=== PATIENT | female | born 1955 | race Caucasian/White ===

== ENCOUNTER 2017-07-21 09:41 | Observation (INO) | payer OTHER ==
[~2017-07-21] VITALS: Ht 167.6 cm; Wt 61.7 kg
[~2017-07-21 09:41] MED LIST: 24 HOUR ALLER15.8 ML; ACET325 PO; ALBU90OI INH; Augmentin 875-1 EACH PO; BENZ2 PO; Benztropine Mesy1 MG PO; CALCA500CH PO; CARV3.125 PO; CETI5 PO; CYCL10 PO; DULO60 PO; ELIQUIS5 MG PO; ERGO400 PO; ERGO50000 PO; GABA300 PO; Hair, Skin & N1 EACH PO; LEVSOD50 PO; LEVSOD75 PO; LISI20 PO; LISI5 PO; LOSA50 PO; MELO7.5 PO; MIRT15 PO; MIRT30 PO; MIRT30ST MM; MIRT30ST PO; Naprosyn500 MG PO; Norco 10-325 T1 EACH PO; Norco 5-325 Ta1 EACH PO; OLAN10 PO; OLAN10A MM; ONDA4 PO; OXYACE5T PO; Omeprazole20 M1 PO; PANT40 PO; PARO20 PO; PENVK500 PO; Percocet 5-3251 EACH PO; Polytrim Eye Dr10 ML BOTHEYES; QUET200 PO; RISE5 PO; RISP.5 PO; TIZANIDINE HCL4 MG PO; TOPI100 PO; TRAM50 PO; VENL75ER PO; ZESTRIL40 MG PO; ZOLP10 PO; Zofran Odt4 MG PO; [UNRECOGNIZED DRUG - CODE]; [UNRECOGNIZED DRUG - CODE]; [UNRECOGNIZED DRUG - CODE] PO
[2017-07-21 10:12] LABS: BASOPHILS ABSOLUTE AUTO 0.07 K/mm3 (0.00-0.23); BASOPHILS PERCENT AUTO 1 % (0-2); EOSINOPHILS ABSOLUTE AUTO 0.22 K/mm3 (0.00-0.68); EOSINOPHILS PERCENT AUTO 2 % (0-6); Hematocrit 41.1 % (33.0-51.0); Hemoglobin 13.5 g/dL (11.5-16.0); IMMATURE GRAN ABSOLUTE AUTO 0.04 K/mm3 (0.00-0.10); IMMATURE GRAN PERCENT AUTO 0 % (0-1); LYMPHOCYTES ABSOLUTE AUTO 3.53 K/mm3 (0.84-5.20); LYMPHOCYTES PERCENT AUTO 30 % (21-46); MONOCYTES ABSOLUTE AUTO 1.05 K/mm3 (0.16-1.47); MONOCYTES PERCENT AUTO 9 % (4-13); Mean Corpuscular HGB 27.3 pg (26.0-34.0); Mean Corpuscular HGB Conc 32.8 g/dL (31.5-36.5); Mean Corpuscular Volume 83 fL (80-100); Mean Platelet Volume 9.4 fL (9.1-12.4); NEUTROPHILS PERCENT AUTO 58 % (41-73); Platelet Count 283 K/mm3 (150-400); RDW Coefficient Variation 14.3 % (11.7-14.2); RDW Standard Deviation 43.2 fL (35.1-46.3); Red Blood Cell Count 4.95 M/mm3 (3.80-5.20); White Blood Cell Count 11.61 K/mm3 (4.00-11.30)
[2017-07-21] MEDS ORDERED: Inderal40 MG (10:27)
[2017-07-21] MEDS ORDERED: MIRT15 PO (10:27)
[2017-07-21] MEDS ORDERED: TRAZ100 PO (10:28)
[2017-07-21] MEDS ORDERED: GABA100 PO (10:28)
[2017-07-21 10:29] LABS: Source, Urine Clean Catch
[2017-07-21 10:33] LABS: Alanine Aminotransfer (ALT/SGP 14 U/L (12-78); Albumin, Blood 3.4 g/dL (3.4-5.0); Albumin/Globulin Ratio 0.8 (0.8-1.8); Alk Phos 55 U/L (50-136); Anion Gap 6 mmol/L (6-16); Aspartate Aminotrans (AST/SGOT 10 U/L (12-37); Bilirubin, Total 0.2 mg/dL (0.1-1.0); Blood Urea Nitrogen 23 mg/dL (8-24); Bun/Creatinine Ratio 32.7 (12.0-20.0); CO2, Blood 28 mmol/L (21-32); Calcium, Blood 8.5 mg/dL (8.5-10.1); Chloride, Blood 101 mmol/L (98-108); Ethanol (Alcohol), Blood, Med <3 mg/dL; Free Thyroxine 0.97 ng/dL (0.70-1.60); Globulin, Blood 4.3 g/dL (2.2-4.0); Glomerular Filtration Rate >60 (60-); Glucose, Blood 86 mg/dL (70-99); Potassium, Blood 4.3 mmol/L (3.5-5.5); Sodium, Blood 135 mmol/L (136-145); Total Protein, Blood 7.7 g/dL (6.4-8.2)
[2017-07-21 10:36] LABS: Thyroid Stimulating Hormone 0.863 uIU/mL (0.360-4.800)
[2017-07-21 10:37] LABS: Acetaminophen, Random <2.0 ug/mL (10.0-30.0)
[2017-07-21 10:41] LABS: Bilirubin, Urine Neg (Neg); Blood, Urine Neg (Neg); Glucose Qualitative, Urine Neg (Neg); Ketones, Urine Neg (Neg); Leukocyte Esterase, Urine 1+ (Neg); Nitrite, Urine Neg (Neg); Protein, Urine Neg (Neg); Specific Gravity, Urine 1.015 (1.003-1.022); Urobilinogen, Urine NORM (Normal)
[2017-07-21 11:00] LABS: U Amphetamine Screen Not Detected; U Barbituate Screen Not Detected; U Benzodiazapine Screen Not Detected; U Buprenorphine Screen Not Detected; U Cannabinoids Screen DETECTED; U Cocaine Screen Not Detected; U Methadone Screen Not Detected; U Methamphetamine Screen Not Detected; U Opiates Screen Not Detected; U Oxycodone Screen Not Detected; U Phencyclidine Screen Not Detected; U Propoxyphene Screen Not Detected
[2017-07-21 11:04] LABS: Appearance, Urine Clear (Clear); Bacteria Not Seen /hpf; Color, Urine Yellow (P-Yellow); Red Blood Cells, Urine Not Seen /hpf (0-2); Squamous Epithelial Cells Few /hpf (Few); White Blood Cells, Urine 0-2 /hpf (0-5)
[2017-07-21] MEDS ORDERED: GABA600 PO (11:44)
[2017-07-21] MEDS ORDERED: DIVA500EC PO (11:44)
[2017-07-21] MEDS ORDERED: DULO60 (11:45)
[2017-07-21] MEDS ORDERED: LEVSOD75 PO (11:45)
[2017-07-21] MEDS ORDERED: OLAN20 MM (11:45)
== END 2017-07-21 18:37 | disposition home or self-care (01) ==
LOC: ER 09:41 → EOR 09:42
PROVIDERS: Emergency Medicine
DX: R45.851 Suicidal ideations (principal); F31.9 Bipolar disorder, unspecified; I10 Essential (primary) hypertension; M54.9 Dorsalgia, unspecified; F17.200 Nicotine dependence, unspecified, uncomplicated; G89.29 Other chronic pain; E07.9 Disorder of thyroid, unspecified; Z90.710 Acquired absence of both cervix and uterus; Z79.899 Other long term (current) drug therapy; Z90.49 Acquired absence of other specified parts of digestive tract; Z88.8 Allergy status to other drugs, medicaments and biological substances
CPT/HCPCS: 80053; 81001; 84439; 84443; 85025; 99285; G0378; G0480

== ENCOUNTER → 2017-10-04 | Outpatient (CLI) | payer OTHER ==
[~2017-10-04] MED LIST changes: +DIVA125EC PO; +DULO60; +GABA100 PO; +GABA600 PO; +Inderal40 MG; +OLAN20 MM; +TRAZ100 PO
[2017-10-04 15:24] LABS: BASOPHILS ABSOLUTE AUTO 0.07 K/mm3 (0.00-0.23); BASOPHILS PERCENT AUTO 1 % (0-2); EOSINOPHILS ABSOLUTE AUTO 0.21 K/mm3 (0.00-0.68); EOSINOPHILS PERCENT AUTO 2 % (0-6); Hematocrit 38.7 % (33.0-51.0); Hemoglobin 13.3 g/dL (11.5-16.0); IMMATURE GRAN ABSOLUTE AUTO 0.03 K/mm3 (0.00-0.10); IMMATURE GRAN PERCENT AUTO 0 % (0-1); LYMPHOCYTES ABSOLUTE AUTO 3.96 K/mm3 (0.84-5.20); LYMPHOCYTES PERCENT AUTO 36 % (21-46); MONOCYTES ABSOLUTE AUTO 1.02 K/mm3 (0.16-1.47); MONOCYTES PERCENT AUTO 9 % (4-13); Mean Corpuscular HGB 28.9 pg (26.0-34.0); Mean Corpuscular HGB Conc 34.4 g/dL (31.5-36.5); Mean Corpuscular Volume 84 fL (80-100); Mean Platelet Volume 9.6 fL (9.1-12.4); NEUTROPHILS ABSOLUTE AUTO 5.63 K/mm3 (1.96-9.15); NEUTROPHILS PERCENT AUTO 52 % (41-73); Platelet Count 330 K/mm3 (150-400); RDW Coefficient Variation 17.3 % (11.7-14.2); RDW Standard Deviation 52.8 fL (35.1-46.3); Red Blood Cell Count 4.61 M/mm3 (3.80-5.20); White Blood Cell Count 10.92 K/mm3 (4.00-11.30)
[2017-10-04 15:45] LABS: Anion Gap 8 mmol/L (6-16); Blood Urea Nitrogen 26 mg/dL (8-24); Bun/Creatinine Ratio 29.2 (12.0-20.0); CO2, Blood 28 mmol/L (21-32); Calcium, Blood 8.9 mg/dL (8.5-10.1); Chloride, Blood 98 mmol/L (98-108); Creatinine, Blood 0.89 mg/dL (0.40-1.00); Glomerular Filtration Rate >60 (60-); Glucose, Blood 107 mg/dL (70-99); Potassium, Blood 4.6 mmol/L (3.5-5.5); Sodium, Blood 134 mmol/L (136-145); Thyroid Stimulating Hormone 1.057 uIU/mL (0.360-4.800); Troponin I <0.017 ng/mL (0.000-0.040)
== END | disposition home or self-care (01) ==
LOC: LAB EV 15:19 → LAB SHORT 15:19
PROVIDERS: Physician Assistant Surgical
DX: R07.9 Chest pain, unspecified (principal); R53.83 Other fatigue
CPT/HCPCS: 80048; 84443; 84484; 85025; 85379

== ENCOUNTER → 2017-10-06 | Outpatient (CLI) | payer OTHER | LOC: LAB EV 15:20 → LAB SHORT 15:20 | DX: R30.0 Dysuria (principal) | CPT/HCPCS: 87086 ==

== ENCOUNTER → 2017-10-19 | Outpatient (CLI) | payer OTHER | LOC: LAB SHORT 12:14 → LAB EV 12:14 | DX: N39.0 Urinary tract infection, site not specified (principal); R07.9 Chest pain, unspecified | CPT/HCPCS: 84484; 85379 ==

== ENCOUNTER → 2017-11-18 | Outpatient (CLI) | payer OTHER ==
[2017-11-18 13:00] LABS: BASOPHILS ABSOLUTE AUTO 0.08 K/mm3 (0.00-0.23); BASOPHILS PERCENT AUTO 1 % (0-2); EOSINOPHILS ABSOLUTE AUTO 0.19 K/mm3 (0.00-0.68); EOSINOPHILS PERCENT AUTO 2 % (0-6); Hematocrit 40.1 % (33.0-51.0); Hemoglobin 13.9 g/dL (11.5-16.0); IMMATURE GRAN ABSOLUTE AUTO 0.02 K/mm3 (0.00-0.10); IMMATURE GRAN PERCENT AUTO 0 % (0-1); LYMPHOCYTES ABSOLUTE AUTO 3.41 K/mm3 (0.84-5.20); LYMPHOCYTES PERCENT AUTO 36 % (21-46); MONOCYTES ABSOLUTE AUTO 0.81 K/mm3 (0.16-1.47); MONOCYTES PERCENT AUTO 9 % (4-13); Mean Corpuscular HGB 29.6 pg (26.0-34.0); Mean Corpuscular HGB Conc 34.7 g/dL (31.5-36.5); Mean Corpuscular Volume 85 fL (80-100); Mean Platelet Volume 9.3 fL (9.1-12.4); NEUTROPHILS ABSOLUTE AUTO 5.03 K/mm3 (1.96-9.15); NEUTROPHILS PERCENT AUTO 53 % (41-73); Platelet Count 305 K/mm3 (150-400); RDW Coefficient Variation 13.8 % (11.7-14.2); RDW Standard Deviation 43.3 fL (35.1-46.3); White Blood Cell Count 9.54 K/mm3 (4.00-11.30)
[2017-11-18 13:12] LABS: Alanine Aminotransfer (ALT/SGP 15 U/L (12-78); Albumin, Blood 3.6 g/dL (3.4-5.0); Albumin/Globulin Ratio 0.8 (0.8-1.8); Alk Phos 56 U/L (40-126); Anion Gap 8 mmol/L (6-16); Aspartate Aminotrans (AST/SGOT 14 U/L (12-37); Bilirubin, Total 0.3 mg/dL (0.1-1.0); Blood Urea Nitrogen 21 mg/dL (8-24); Bun/Creatinine Ratio 26.9 (12.0-20.0); CO2, Blood 28 mmol/L (21-32); Chloride, Blood 97 mmol/L (98-108); Creatinine, Blood 0.78 mg/dL (0.40-1.00); Globulin, Blood 4.3 g/dL (2.2-4.0); Glomerular Filtration Rate >60 (60-); Glucose, Blood 87 mg/dL (70-99); Potassium, Blood 4.9 mmol/L (3.5-5.5); Sodium, Blood 133 mmol/L (136-145); Total Protein, Blood 7.9 g/dL (6.4-8.2)
== END | disposition home or self-care (01) ==
LOC: LAB SHORT 12:57 → LAB EV 12:57
PROVIDERS: General Practice
DX: J02.9 Acute pharyngitis, unspecified (principal); R51 Headache
CPT/HCPCS: 80053; 85025; 85651; 87070

== ENCOUNTER → 2017-11-21 | Outpatient (CLI) | payer OTHER | END | disposition home or self-care (01) | LOC: LAB SHORT 16:51 → LAB EV 16:51 | DX: R35.0 Frequency of micturition (principal) | CPT/HCPCS: 87086 ==

== ENCOUNTER 2018-02-21 09:22 | Inpatient (IN) | payer OTHER ==
[~2018-02-21] VITALS: Ht 167.6 cm; Wt 81.4 kg
[~2018-02-21 09:22] MED LIST changes: -DIVA125EC PO; +DIVA500EC PO
[2018-02-21 10:41] LABS: BASOPHILS ABSOLUTE AUTO 0.08 K/mm3 (0.00-0.23); BASOPHILS PERCENT AUTO 1 % (0-2); EOSINOPHILS ABSOLUTE AUTO 0.19 K/mm3 (0.00-0.68); EOSINOPHILS PERCENT AUTO 2 % (0-6); Hematocrit 37.9 % (33.0-51.0); Hemoglobin 12.7 g/dL (11.5-16.0); IMMATURE GRAN ABSOLUTE AUTO 0.04 K/mm3 (0.00-0.10); IMMATURE GRAN PERCENT AUTO 0 % (0-1); LYMPHOCYTES PERCENT AUTO 25 % (21-46); MONOCYTES ABSOLUTE AUTO 1.18 K/mm3 (0.16-1.47); MONOCYTES PERCENT AUTO 9 % (4-13); Mean Corpuscular HGB Conc 33.5 g/dL (31.5-36.5); Mean Corpuscular Volume 89 fL (80-100); Mean Platelet Volume 9.6 fL (9.1-12.4); NEUTROPHILS ABSOLUTE AUTO 8.36 K/mm3 (1.96-9.15); NEUTROPHILS PERCENT AUTO 64 % (41-73); Platelet Count 281 K/mm3 (150-400); RDW Coefficient Variation 14.4 % (11.7-14.2); RDW Standard Deviation 46.7 fL (35.1-46.3); Red Blood Cell Count 4.24 M/mm3 (3.80-5.20); White Blood Cell Count 13.05 K/mm3 (4.00-11.30)
[2018-02-21 10:53] LABS: Alanine Aminotransfer (ALT/SGP 15 U/L (12-78); Albumin, Blood 3.1 g/dL (3.4-5.0); Albumin/Globulin Ratio 0.7 (0.8-1.8); Alk Phos 56 U/L (50-136); Anion Gap 8 mmol/L (6-16); Aspartate Aminotrans (AST/SGOT 10 U/L (12-37); Bilirubin, Total 0.2 mg/dL (0.1-1.0); Blood Urea Nitrogen 18 mg/dL (8-24); Bun/Creatinine Ratio 28.6 (12.0-20.0); CO2, Blood 26 mmol/L (21-32); Calcium, Blood 8.2 mg/dL (8.5-10.1); Chloride, Blood 99 mmol/L (98-108); Creatinine, Blood 0.63 mg/dL (0.40-1.00); Globulin, Blood 4.4 g/dL (2.2-4.0); Glomerular Filtration Rate >60 (60-); Glucose, Blood 116 mg/dL (70-99); Potassium, Blood 4.4 mmol/L (3.5-5.5); Sodium, Blood 133 mmol/L (136-145); Total Protein, Blood 7.5 g/dL (6.4-8.2)
[2018-02-21] MEDS ORDERED: MELATONIN PO (15:04)
[2018-02-21 15:45] LABS: Source, Urine Clean Catch
[2018-02-21 15:52] LABS: Bilirubin, Urine Neg (Neg); Blood, Urine Neg (Neg); Glucose Qualitative, Urine Neg (Neg); Ketones, Urine Neg (Neg); Leukocyte Esterase, Urine Neg (Neg); Nitrite, Urine Neg (Neg); Protein, Urine Neg (Neg); Urobilinogen, Urine NORM (Normal)
[2018-02-21 16:00] LABS: Appearance, Urine Clear (Clear); Color, Urine Yellow (P-Yellow)
[2018-02-21 16:05] LABS: U Cannabinoids Screen DETECTED; U Opiates Screen DETECTED
[2018-02-21 16:06] LABS: U Amphetamine Screen Not Detected; U Barbituate Screen Not Detected; U Benzodiazapine Screen Not Detected; U Buprenorphine Screen Not Detected; U Cocaine Screen Not Detected; U Methadone Screen Not Detected; U Methamphetamine Screen Not Detected; U Oxycodone Screen Not Detected; U Phencyclidine Screen Not Detected; U Propoxyphene Screen Not Detected
[2018-02-22 05:55] LABS: BASOPHILS ABSOLUTE AUTO 0.04 K/mm3 (0.00-0.23); BASOPHILS PERCENT AUTO 0 % (0-2); EOSINOPHILS ABSOLUTE AUTO 0.12 K/mm3 (0.00-0.68); EOSINOPHILS PERCENT AUTO 1 % (0-6); Hematocrit 30.2 % (33.0-51.0); Hemoglobin 9.9 g/dL (11.5-16.0); IMMATURE GRAN ABSOLUTE AUTO 0.04 K/mm3 (0.00-0.10); IMMATURE GRAN PERCENT AUTO 0 % (0-1); LYMPHOCYTES ABSOLUTE AUTO 2.93 K/mm3 (0.84-5.20); LYMPHOCYTES PERCENT AUTO 29 % (21-46); MONOCYTES ABSOLUTE AUTO 1.49 K/mm3 (0.16-1.47); MONOCYTES PERCENT AUTO 15 % (4-13); Mean Corpuscular HGB Conc 32.8 g/dL (31.5-36.5); Mean Platelet Volume 9.6 fL (9.1-12.4); NEUTROPHILS ABSOLUTE AUTO 5.48 K/mm3 (1.96-9.15); NEUTROPHILS PERCENT AUTO 54 % (41-73); Platelet Count 214 K/mm3 (150-400); RDW Coefficient Variation 14.7 % (11.7-14.2); RDW Standard Deviation 49.2 fL (35.1-46.3)
[2018-02-22 05:57] LABS: Mean Corpuscular Volume 92 fL (80-100)
[2018-02-22 06:18] LABS: Magnesium, Blood 1.8 mg/dL (1.6-2.4)
[2018-02-22 06:20] LABS: Anion Gap 7 mmol/L (6-16); Blood Urea Nitrogen 14 mg/dL (8-24); Bun/Creatinine Ratio 20.7 (12.0-20.0); CO2, Blood 27 mmol/L (21-32); Chloride, Blood 103 mmol/L (98-108); Creatinine, Blood 0.68 mg/dL (0.40-1.00); Glomerular Filtration Rate >60 (60-); Glucose, Blood 97 mg/dL (70-99); Sodium, Blood 137 mmol/L (136-145)
[2018-02-23 05:35] LABS: BASOPHILS ABSOLUTE AUTO 0.04 K/mm3 (0.00-0.23); BASOPHILS PERCENT AUTO 0 % (0-2); EOSINOPHILS ABSOLUTE AUTO 0.11 K/mm3 (0.00-0.68); EOSINOPHILS PERCENT AUTO 1 % (0-6); Hematocrit 24.1 % (33.0-51.0); Hemoglobin 7.7 g/dL (11.5-16.0); IMMATURE GRAN ABSOLUTE AUTO 0.03 K/mm3 (0.00-0.10); IMMATURE GRAN PERCENT AUTO 0 % (0-1); LYMPHOCYTES ABSOLUTE AUTO 2.55 K/mm3 (0.84-5.20); LYMPHOCYTES PERCENT AUTO 26 % (21-46); MONOCYTES ABSOLUTE AUTO 1.53 K/mm3 (0.16-1.47); MONOCYTES PERCENT AUTO 16 % (4-13); Mean Corpuscular HGB 30.1 pg (26.0-34.0); Mean Corpuscular Volume 94 fL (80-100); Mean Platelet Volume 8.9 fL (9.1-12.4); NEUTROPHILS ABSOLUTE AUTO 5.48 K/mm3 (1.96-9.15); NEUTROPHILS PERCENT AUTO 56 % (41-73); Platelet Count 158 K/mm3 (150-400); RDW Coefficient Variation 14.6 % (11.7-14.2); Red Blood Cell Count 2.56 M/mm3 (3.80-5.20); White Blood Cell Count 9.74 K/mm3 (4.00-11.30)
[2018-02-24 06:35] LABS: BASOPHILS ABSOLUTE AUTO 0.03 K/mm3 (0.00-0.23); BASOPHILS PERCENT AUTO 0 % (0-2); EOSINOPHILS PERCENT AUTO 1 % (0-6); Hematocrit 27.2 % (33.0-51.0); Hemoglobin 9.4 g/dL (11.5-16.0); IMMATURE GRAN ABSOLUTE AUTO 0.03 K/mm3 (0.00-0.10); IMMATURE GRAN PERCENT AUTO 0 % (0-1); LYMPHOCYTES ABSOLUTE AUTO 1.94 K/mm3 (0.84-5.20); LYMPHOCYTES PERCENT AUTO 20 % (21-46); MONOCYTES ABSOLUTE AUTO 1.55 K/mm3 (0.16-1.47); MONOCYTES PERCENT AUTO 16 % (4-13); Mean Corpuscular HGB 30.4 pg (26.0-34.0); Mean Corpuscular HGB Conc 34.6 g/dL (31.5-36.5); Mean Platelet Volume 10.1 fL (9.1-12.4); NEUTROPHILS ABSOLUTE AUTO 5.98 K/mm3 (1.96-9.15); NEUTROPHILS PERCENT AUTO 62 % (41-73); Platelet Count 161 K/mm3 (150-400); RDW Coefficient Variation 14.8 % (11.7-14.2); RDW Standard Deviation 47.6 fL (35.1-46.3); Red Blood Cell Count 3.09 M/mm3 (3.80-5.20); White Blood Cell Count 9.63 K/mm3 (4.00-11.30)
[2018-02-24 06:37] LABS: Mean Corpuscular Volume 88 fL (80-100)
[2018-02-24 06:51] LABS: Albumin, Blood 2.2 g/dL (3.4-5.0); Anion Gap 6 mmol/L (6-16); Blood Urea Nitrogen 6 mg/dL (8-24); Bun/Creatinine Ratio 10.7 (12.0-20.0); CO2, Blood 28 mmol/L (21-32); Calcium, Blood 7.7 mg/dL (8.5-10.1); Chloride, Blood 104 mmol/L (98-108); Creatinine, Blood 0.56 mg/dL (0.40-1.00); Glomerular Filtration Rate >60 (60-); Glucose, Blood 90 mg/dL (70-99); Phosphorus, Blood 2.2 mg/dL (2.5-4.9); Potassium, Blood 4.1 mmol/L (3.5-5.5); Sodium, Blood 138 mmol/L (136-145)
[2018-02-25 18:23] LABS: Source, Urine Catheter
[2018-02-25 18:31] LABS: Appearance, Urine Clear (Clear); Bilirubin, Urine Neg (Neg); Blood, Urine Neg (Neg); Color, Urine Yellow (P-Yellow); Glucose Qualitative, Urine Neg (Neg); Ketones, Urine 3+ (Neg); Leukocyte Esterase, Urine 1+ (Neg); Nitrite, Urine Neg (Neg); Protein, Urine 1+ (Neg); Specific Gravity, Urine 1.005 (1.003-1.022); Urobilinogen, Urine 1+ (Normal)
[2018-02-25 18:41] LABS: Bacteria Not Seen /hpf; Red Blood Cells, Urine Not Seen /hpf (0-2); Squamous Epithelial Cells Rare /hpf (Few)
== END 2018-02-26 16:37 | DRG 481 ==
LOC: ER 09:22 → SURS 12:57
PROVIDERS: Emergency Medicine; Family Medicine; Orthopaedic Surgery; Student in an Organized Health Care Education/Training Program
PROC: 0QS704Z Reposition Left Upper Femur with Internal Fixation Device, Open Approach (ICD-10-PCS; principal; 2018-02-22 12:30)
DX: S72.142A Displaced intertrochanteric fracture of left femur, initial encounter for closed fracture (principal); D62 Acute posthemorrhagic anemia; S72.042A Displaced fracture of base of neck of left femur, initial encounter for closed fracture; F31.9 Bipolar disorder, unspecified; E03.9 Hypothyroidism, unspecified; I10 Essential (primary) hypertension; M85.80 Other specified disorders of bone density and structure, unspecified site; F32.9 Major depressive disorder, single episode, unspecified; W19.XXXA Unspecified fall, initial encounter
CPT/HCPCS: 36415; 51702; 71045; 73502; 80048; 80053; 80069; 81001; 81003; 83735; 85025; 86850; 86900; 86901; 86923; 93005; 93010; 94760; 94762; 96361; 96374; 96375; 96376; 97162; 97166; 97530; 97535; 99285-25; C1713; C1769; G0480; G8978; G8979; G8987; G8988; J0690; J1170; J1650; J2250; J2310; J2370; J2405; J2710; J3010; J7030; J7050; J7120; P9016

== ENCOUNTER 2018-09-10 13:51 | Emergency (ER) | payer OTHER ==
[~2018-09-10] VITALS: Ht 167.6 cm; Wt 63.5 kg
[~2018-09-10 13:51] MED LIST changes: +MELATONIN PO
[2018-09-10 16:38] LABS: Source, Urine Catheter
[2018-09-10 16:40] LABS: Bilirubin, Urine Neg (Neg); Blood, Urine Neg (Neg); Glucose Qualitative, Urine Neg (Neg); Ketones, Urine 4+ (Neg); Leukocyte Esterase, Urine 1+ (Neg); Nitrite, Urine Neg (Neg); Protein, Urine 1+ (Neg); Specific Gravity, Urine 1.015 (1.003-1.022); Urobilinogen, Urine 1+ (Normal)
[2018-09-10 16:54] LABS: Appearance, Urine Clear (Clear); Color, Urine Yellow (P-Yellow)
[2018-09-10 16:58] LABS: Bacteria Few /hpf; Red Blood Cells, Urine 0-2 /hpf (0-2); Renal Epithelial Rare /hpf ({null, 0-Rare}); Squamous Epithelial Cells Few /hpf (Few)
== END 2018-09-10 18:23 | disposition home or self-care (01) ==
LOC: ER 13:51
PROVIDERS: Emergency Medicine
DX: M54.5 Low back pain (principal); F31.9 Bipolar disorder, unspecified; I10 Essential (primary) hypertension; E07.9 Disorder of thyroid, unspecified; F17.200 Nicotine dependence, unspecified, uncomplicated; Z88.5 Allergy status to narcotic agent; Z88.8 Allergy status to other drugs, medicaments and biological substances; Z79.899 Other long term (current) drug therapy
CPT/HCPCS: 72100; 81001; 87086; 96372; 99284-25; J1885; P9612

== ENCOUNTER 2018-10-08 02:10 | Emergency (ER) | payer OTHER ==
[~2018-10-08] VITALS: Ht 170.2 cm; Wt 68.0 kg
[2018-10-08 02:49] LABS: Source, Urine Catheter
[2018-10-08 02:56] LABS: Bilirubin, Urine Neg (Neg); Blood, Urine Neg (Neg); Glucose Qualitative, Urine Neg (Neg); Ketones, Urine Neg (Neg); Leukocyte Esterase, Urine 1+ (Neg); Nitrite, Urine Neg (Neg); Protein, Urine Neg (Neg); Urobilinogen, Urine NORM (Normal); pH, Urine 6.5 (5.0-8.0)
[2018-10-08 02:57] LABS: Appearance, Urine Clear (Clear); Color, Urine Yellow (P-Yellow)
[2018-10-08 03:01] LABS: Bacteria Mod /hpf; Red Blood Cells, Urine 0-2 /hpf (0-2); Squamous Epithelial Cells Not Seen /hpf (Few); White Blood Cells, Urine 0-2 /hpf (0-5)
[2018-10-08 03:27] LABS: U Amphetamine Screen Not Detected; U Barbituate Screen Not Detected; U Benzodiazapine Screen Not Detected; U Buprenorphine Screen Not Detected; U Cannabinoids Screen DETECTED; U Cocaine Screen Not Detected; U Methadone Screen Not Detected; U Methamphetamine Screen Not Detected; U Opiates Screen Not Detected; U Oxycodone Screen Not Detected; U Phencyclidine Screen Not Detected; U Propoxyphene Screen Not Detected
[2018-10-08 04:04] LABS: BASOPHILS ABSOLUTE AUTO 0.03 K/mm3 (0.00-0.23); BASOPHILS PERCENT AUTO 0 % (0-2); EOSINOPHILS ABSOLUTE AUTO 0.13 K/mm3 (0.00-0.68); EOSINOPHILS PERCENT AUTO 2 % (0-6); Hematocrit 37.7 % (33.0-51.0); IMMATURE GRAN ABSOLUTE AUTO 0.04 K/mm3 (0.00-0.10); IMMATURE GRAN PERCENT AUTO 1 % (0-1); LYMPHOCYTES ABSOLUTE AUTO 2.42 K/mm3 (0.84-5.20); LYMPHOCYTES PERCENT AUTO 29 % (21-46); MONOCYTES ABSOLUTE AUTO 0.91 K/mm3 (0.16-1.47); MONOCYTES PERCENT AUTO 11 % (4-13); Mean Corpuscular HGB 30.7 pg (26.0-34.0); Mean Corpuscular HGB Conc 34.5 g/dL (31.5-36.5); Mean Corpuscular Volume 89 fL (80-100); NEUTROPHILS ABSOLUTE AUTO 4.74 K/mm3 (1.96-9.15); NEUTROPHILS PERCENT AUTO 57 % (41-73); RDW Coefficient Variation 12.8 % (11.7-14.2); RDW Standard Deviation 41.8 fL (35.1-46.3); Red Blood Cell Count 4.24 M/mm3 (3.80-5.20); White Blood Cell Count 8.27 K/mm3 (4.00-11.30)
[2018-10-08 04:06] LABS: Mean Platelet Volume 10.7 fL (9.1-12.4); Platelet Count 54 K/mm3 (150-400)
[2018-10-08 06:07] LABS: Alanine Aminotransfer (ALT/SGP 11 U/L (12-78); Albumin, Blood 3.1 g/dL (3.4-5.0); Albumin/Globulin Ratio 0.8 (0.8-1.8); Alk Phos 162 U/L (50-136); Anion Gap 9 mmol/L (6-16); Aspartate Aminotrans (AST/SGOT 17 U/L (12-37); Bilirubin, Total 0.4 mg/dL (0.1-1.0); Blood Urea Nitrogen 6 mg/dL (8-24); Bun/Creatinine Ratio 8.6 (12.0-20.0); CO2, Blood 26 mmol/L (21-32); Calcium, Blood 8.7 mg/dL (8.5-10.1); Chloride, Blood 95 mmol/L (98-108); Ethanol (Alcohol), Blood, Med <3 mg/dL; Globulin, Blood 3.8 g/dL (2.2-4.0); Glomerular Filtration Rate >60 (60-); Glucose, Blood 67 mg/dL (70-99); Sodium, Blood 130 mmol/L (136-145); Total Protein, Blood 6.9 g/dL (6.4-8.2); Troponin I <0.015 ng/mL (0.000-0.040)
== END 2018-10-08 06:46 | disposition home or self-care (01) ==
LOC: ER 02:10
PROVIDERS: Emergency Medicine
DX: R41.82 Altered mental status, unspecified (principal); I10 Essential (primary) hypertension; F17.210 Nicotine dependence, cigarettes, uncomplicated
CPT/HCPCS: 36415; 70450; 80053; 81001; 84484; 85025; 87086; 93005; 93010; 96360; 96361; 99285-25; G0480; J7120

== ENCOUNTER 2018-10-13 15:14 | Inpatient (IN) | payer OTHER ==
[~2018-10-13] VITALS: Ht 170.2 cm; Wt 66.9 kg
[~2018-10-13 15:14] MED LIST changes: +MELA3 PO; -MELATONIN PO
[2018-10-13 15:37] LABS: BASOPHILS ABSOLUTE AUTO 0.03 K/mm3 (0.00-0.23); BASOPHILS PERCENT AUTO 0 % (0-2); EOSINOPHILS ABSOLUTE AUTO 0.08 K/mm3 (0.00-0.68); EOSINOPHILS PERCENT AUTO 1 % (0-6); Hematocrit 39.5 % (33.0-51.0); Hemoglobin 13.2 g/dL (11.5-16.0); IMMATURE GRAN ABSOLUTE AUTO 0.02 K/mm3 (0.00-0.10); IMMATURE GRAN PERCENT AUTO 0 % (0-1); LYMPHOCYTES ABSOLUTE AUTO 2.33 K/mm3 (0.84-5.20); LYMPHOCYTES PERCENT AUTO 31 % (21-46); MONOCYTES ABSOLUTE AUTO 0.82 K/mm3 (0.16-1.47); MONOCYTES PERCENT AUTO 11 % (4-13); Mean Corpuscular HGB 30.6 pg (26.0-34.0); Mean Corpuscular HGB Conc 33.4 g/dL (31.5-36.5); Mean Platelet Volume 10.1 fL (9.1-12.4); NEUTROPHILS ABSOLUTE AUTO 4.25 K/mm3 (1.96-9.15); NEUTROPHILS PERCENT AUTO 56 % (41-73); Platelet Count 149 K/mm3 (150-400); RDW Coefficient Variation 13.5 % (11.7-14.2); RDW Standard Deviation 46.1 fL (35.1-46.3); Red Blood Cell Count 4.31 M/mm3 (3.80-5.20); White Blood Cell Count 7.53 K/mm3 (4.00-11.30)
[2018-10-13 15:38] LABS: Mean Corpuscular Volume 92 fL (80-100)
[2018-10-13 16:02] LABS: Alanine Aminotransfer (ALT/SGP 14 U/L (12-78); Albumin, Blood 3.3 g/dL (3.4-5.0); Albumin/Globulin Ratio 0.8 (0.8-1.8); Alk Phos 138 U/L (50-136); Anion Gap 8 mmol/L (6-16); Aspartate Aminotrans (AST/SGOT 24 U/L (12-37); Bilirubin, Total 0.4 mg/dL (0.1-1.0); Blood Urea Nitrogen 8 mg/dL (8-24); Bun/Creatinine Ratio 11.1 (12.0-20.0); CO2, Blood 27 mmol/L (21-32); Calcium, Blood 9.2 mg/dL (8.5-10.1); Chloride, Blood 94 mmol/L (98-108); Creatinine, Blood 0.72 mg/dL (0.40-1.00); Globulin, Blood 4.3 g/dL (2.2-4.0); Glomerular Filtration Rate >60 (60-); Glucose, Blood 92 mg/dL (70-99); Potassium, Blood 3.9 mmol/L (3.5-5.5); Sodium, Blood 129 mmol/L (136-145); Total Protein, Blood 7.6 g/dL (6.4-8.2)
[2018-10-13 16:24] LABS: Source, Urine Catheter
[2018-10-13 16:38] LABS: Appearance, Urine Turbid (Clear); Blood, Urine 5+ (Neg); Color, Urine Yellow (P-Yellow); Glucose Qualitative, Urine Neg (Neg); Ketones, Urine 3+ (Neg); Leukocyte Esterase, Urine 3+ (Neg); Nitrite, Urine Pos (Neg); Protein, Urine 3+ (Neg); Urobilinogen, Urine 1+ (Normal)
[2018-10-13 16:54] LABS: PCO2 Arterial 37.9 mmHg (35-45); PO2 Arterial 70.6 mmHg (80-100); pH Blood Arterial 7.43 (7.35-7.45)
[2018-10-13 17:08] LABS: Bilirubin, Urine 1+ (Neg)
[2018-10-13 17:12] LABS: Bacteria Many /hpf; Squamous Epithelial Cells Few /hpf (Few); White Blood Cells, Urine TNTC /hpf (0-5)
[2018-10-13 18:03] LABS: U Amphetamine Screen Not Detected; U Barbituate Screen Not Detected; U Benzodiazapine Screen Not Detected; U Buprenorphine Screen Not Detected; U Cannabinoids Screen DETECTED; U Cocaine Screen Not Detected; U Methadone Screen Not Detected; U Methamphetamine Screen Not Detected; U Opiates Screen Not Detected; U Oxycodone Screen Not Detected; U Phencyclidine Screen Not Detected; U Propoxyphene Screen Not Detected
--- NOTE | 2018-10-13 22:13 | NUR ---
[birth year]29 63 y/o female admitted to room 349 via stretcher from ER. Pt slightly confused, alert person only, able to follow very simple verbal commands in low monotone voice. pts bilateral hand gripps and foot push and pulls weak and equal.
--- NOTE | 2018-10-14 04:12 | NUR ---
SHIFT SUMMARY: 63 Y/O FEMALE RESTED COMFORTABLY ALL EVENING. PTS IV INFUSING WITHOUT ISSUES. PT ALERT TO PERSON ONLY, UNABLE TO FEED OR DRINK FLUIDS UNLESS ASSISTED BY STAFF (POOR HAND AND EYE COORDINATION NOTED). PT APPEARS TO HAVE NO PAIN OR NAUSEA. PT INCONTINENT AND WAS CLEANSED UP BY STAFF WITH ATTENDS DIAPERS APPLIED. PTS BED ALARM APPLIED, BED LOW POSITION, CALL LIGHT AT SIDE.
[2018-10-14 05:39] LABS: Anion Gap 6 mmol/L (6-16); Blood Urea Nitrogen 6 mg/dL (8-24); CO2, Blood 27 mmol/L (21-32); Calcium, Blood 7.8 mg/dL (8.5-10.1); Chloride, Blood 105 mmol/L (98-108); Glomerular Filtration Rate >60 (60-); Glucose, Blood 86 mg/dL (70-99); Potassium, Blood 3.3 mmol/L (3.5-5.5); Sodium, Blood 138 mmol/L (136-145)
--- NOTE | 2018-10-14 16:58 | NUR ---
PT HAS INTERMITTED PERIODS OF ORIENTATION AND ALERTNESS. PT REQUESTED TO GET UP TO CHAIR, BUT CHANGED HER MIND. PT IS INCONTINENT OF URINE, AND BECOMES RESTLESS WHEN SHE IS WET. PT DOES NOT USE CALL LIGHT, ANTICIPATE PT NEEDS. PT HAS SOME TREMULOUS-LIKE MOVEMENT, AND STARTLES EASILY. PT DENIES PAIN, NAUSEA, AND SOB. PT REPORTED NOT FEEL WELL, BUT COULD NOT DESCRIBE SYMPOTMS. ASSISTED WITH BED BATH, PT TOLERATED WELL AND REPORTED FEELING BETTER AFTERWARDS.
--- NOTE | 2018-10-15 04:22 | NUR ---
SHIFT SUMMARY: 63 Y/O FEMALE RESTED COMFORTABLY ALL EVENING. PT IS ALERT AND ORIENTED X 2 AND MUMBLES TO SELF AND MOVES BACK AND FORTH IN BED FREQUENTLY. PT HAS DISORGANIZED THOUGHT PROCESS AND ABLE TO FOLLOW VERY SIMPLE VOICE COMMANDS ONLY. PT REQUIRES ASSISTANCE WITH ALL ADLS TO INCLUDE FEEDING SELF, HOLDING CUP TO DRINK WATER BY STAFF. PT TOOK ALL MEDS AT ONCE WHEN ASSISTED BY THIS NURSE WITH GOOD GAG REFLEX NOTED. PT DENIES PAIN OR NAUSEA. PT IS INCONTINENT URINE AND WAS CHANGED BY STAFF THROUGHOUT SHIFT. PTS BED ALARM APPLIED, BED LOW POSITION, CALL LIGHT AT SIDE.
[2018-10-15 05:55] LABS: Anion Gap 7 mmol/L (6-16); Blood Urea Nitrogen 3 mg/dL (8-24); Bun/Creatinine Ratio 5.5 (12.0-20.0); CO2, Blood 29 mmol/L (21-32); Calcium, Blood 8.8 mg/dL (8.5-10.1); Chloride, Blood 104 mmol/L (98-108); Creatinine, Blood 0.55 mg/dL (0.40-1.00); Glomerular Filtration Rate >60 (60-); Glucose, Blood 72 mg/dL (70-99); Potassium, Blood 4.2 mmol/L (3.5-5.5); Sodium, Blood 140 mmol/L (136-145)
[2018-10-15 10:41] LABS: Valproic Acid 108.9 ug/mL (50.0-100.0)
--- NOTE | 2018-10-15 16:20 | NUR ---
PT IS ALERT DROWSY, ANSWERS SOME QUESTIONS APPROPRIATLY, PT IS SLOW TO RESPOND, SLEPT T/O THE DAY, THE PT WAS UP IN THE CHAIR FOR A SHORT TIME THIS AM, THE PT THIS AM REPORTED SOME PAIN IN RIGHT HIP AREA, HOWEVER WAS NOT MEDICATED FOR PAIN DUE TO EXCESSIVE DROWSINESS, THE PT APPEARS TO BE BREATHING EASILY ON RA AT THIS TIME, CALL LIGHT IN REACH, THE PT TALKED WITH HER SO OVER THE PHONE TODAY, BED ALARM ON, BED IN THE LOW POSITION
--- NOTE | 2018-10-16 06:25 | NUR ---
SUMMARY: A/O TO SELF/PLACE AND ANSWERS SOME Q'S APPROPRIATELY BUT IS SLOW TO RESPOND AND SLEPT MAJORITY OF NOCTE. SHE TOOK PILLS W/O DIFFICULTY AND DENIED PAIN/NEEDS. ATTENDS WERE CHANGED PRN FOR INCONTINENCE, PT WAS UNAWARE OF NEEDING TO VOID BUT KNEW WHEN WET. SHE HAS SHAKEY EXT'S AND MOVES FREQUENTLY IN BED, FEEDER ASSIST REQUIRED. NO ACUTE CHANGES, VSS/AFEBRILE. WILL MONITOR AND REPORT TO DAY RN. POLST NEEDS ADDRESSED TO UPDATE DESIRED CODE STATUS, WILL ENSURE DAY STAFF ARE AWARE.
--- NOTE | 2018-10-16 18:20 | NUR ---
PT A/O X3 PLEASANT AND COOPERATIVE, THE PT THIS AM REPORTED THAT SHE FELT BETTER THIS AM, THE PT IS MORE ALERT AND TALKATIVE COMPARED TO YESTERDAY, THE PT WAS UP INTO THE CHAIR X2 TODAY, THE PT APPEARS TO BE BREATHING EASILY ON RA, THE PT IS PAIIIL IN COLOR, THE PT DOES HAVE RIGHT HIP PAIN WITH ACTIVITY, THE PT SLEPT OFF AND ON T/O THE DAY, CALL LIGHT IN REACH, BED ALARM ON, BED IN THE LOW POSITION
[2018-10-17 05:40] LABS: Hematocrit 31.3 % (33.0-51.0); Hemoglobin 10.4 g/dL (11.5-16.0); Mean Corpuscular HGB 30.1 pg (26.0-34.0); Mean Corpuscular HGB Conc 33.2 g/dL (31.5-36.5); Mean Corpuscular Volume 91 fL (80-100); Mean Platelet Volume 9.5 fL (9.1-12.4); Platelet Count 122 K/mm3 (150-400); RDW Coefficient Variation 13.8 % (11.7-14.2); RDW Standard Deviation 45.9 fL (35.1-46.3); Red Blood Cell Count 3.46 M/mm3 (3.80-5.20); White Blood Cell Count 6.41 K/mm3 (4.00-11.30)
[2018-10-17 05:55] LABS: Albumin, Blood 2.6 g/dL (3.4-5.0); Anion Gap 6 mmol/L (6-16); Blood Urea Nitrogen 7 mg/dL (8-24); CO2, Blood 30 mmol/L (21-32); Calcium, Blood 8.8 mg/dL (8.5-10.1); Chloride, Blood 99 mmol/L (98-108); Creatinine, Blood 0.58 mg/dL (0.40-1.00); Glomerular Filtration Rate >60 (60-); Glucose, Blood 77 mg/dL (70-99); Phosphorus, Blood 3.9 mg/dL (2.5-4.9); Potassium, Blood 3.6 mmol/L (3.5-5.5); Sodium, Blood 135 mmol/L (136-145)
--- NOTE | 2018-10-17 06:10 | NUR ---
SUMMARY: A/OX3, SPECIFIES NEEDS AND COOPERATIVE W/CARE. SHE INITIALLY REPORTED FEELING "LOW" AT START OF SHIFT BUT SUPPORT PROVIDED AND TV TURNED ON FOR DISTRACTION AND PT'S SPIRITS IMPROVED. SHE IS INCREASINGLY MORE SENSICAL AND MUCH MORE INTERACTIVE THIS SHIFT. BASELINE TREMOR PERSISTS SO FOOD/DRINK SET UP IS REQUIRED. PT TOLERATES PILLS WHOLE W/O DIFFICULTY. ATTENDS CHANGED PRN FOR INCONTINENCE. SHE SLEPT MAJORITY OF SHIFT. VSS/AFEBRILE, NO ACUTE CHANGES. WILL MONITOR AND REPORT TO DAY RN.
[2018-10-17] MEDS ORDERED: CEFU500T30 PO (12:37)
--- NOTE | 2018-10-17 16:39 | NUR ---
PT DISCHARGED INSTRUCTIONS WERE GIVEN TO THE PT, THE PTS SO WAS NOTIFIED OF THE DISCHARGE, QUESTIONS WERE ANSWERED, THE PT WAS A/OX2, THE PT APPEARED TO BE BREATHING EASILY ON RA, PRESCRIPTIONS WERE FAXED TO [facility]. DRUG REQUESTED, THE PT WAS TRANSFERED VIA WHEELCHAIR
== END 2018-10-17 15:45 | disposition home health service (06) | DRG 689 ==
LOC: ER 15:14 → MEDS 15:15 → ENPENDDIS 10-17 12:49 → MEDS 10-17 15:45
PROVIDERS: Emergency Medicine; Internal Medicine; Nurse Practitioner Psychiatric/Mental Health; ADMIT Internal Medicine
DX: N30.00 Acute cystitis without hematuria (principal); G92 Toxic encephalopathy; E87.1 Hypo-osmolality and hyponatremia; T43.95XA Adverse effect of unspecified psychotropic drug, initial encounter; B96.1 Klebsiella pneumoniae [K. pneumoniae] as the cause of diseases classified elsewhere; E03.9 Hypothyroidism, unspecified; R53.1 Weakness; I10 Essential (primary) hypertension; F31.9 Bipolar disorder, unspecified; F17.210 Nicotine dependence, cigarettes, uncomplicated; G89.29 Other chronic pain; R82.5 Elevated urine levels of drugs, medicaments and biological substances; M54.9 Dorsalgia, unspecified; Z88.8 Allergy status to other drugs, medicaments and biological substances; Z79.899 Other long term (current) drug therapy
CPT/HCPCS: 36415; 36600; 80048; 80053; 80069; 80164; 81001; 82140; 82803; 85025; 85027; 87077; 87086; 87186; 96360; 96361; 96365; 96366; 96367; 96372; 97162; 97166; 97530; 97535; 99285-25; G0378; J0696; J1650; J3480; J7030; P9612

== ENCOUNTER → 2018-10-25 | Outpatient (CLI) | payer OTHER ==
[~2018-10-25] MED LIST changes: +CEFU500T30 PO
== END | disposition home or self-care (01) ==
LOC: LAB UCHC 16:00 → LAB SHORT 16:00 → EDSTATUS 10-24 13:45 → LAB FUT 10-24 13:45
DX: N39.0 Urinary tract infection, site not specified (principal)
CPT/HCPCS: 87077; 87086; 87186

== ENCOUNTER → 2018-12-06 | Outpatient (CLI) | payer OTHER ==
[~2018-12-06] MED LIST changes: +CEPH500 PO; +DIVA250ER PO; -DULO60; -Inderal40 MG; +Inderal40 MG PO; +Neurontin 100100 MG PO; -OLAN20 MM; +OLAN20 PO; +OLAN5 PO; +Protonix40 MG PO
[2018-12-06 13:38] LABS: Source, Urine Clean Catch
[2018-12-06 13:52] LABS: Bilirubin, Urine Neg (Neg); Blood, Urine 2+ (Neg); Glucose Qualitative, Urine Neg (Neg); Ketones, Urine Neg (Neg); Leukocyte Esterase, Urine Neg (Neg); Nitrite, Urine Neg (Neg); Protein, Urine Neg (Neg); Urobilinogen, Urine NORM (Normal)
[2018-12-06 14:04] LABS: Appearance, Urine Clear (Clear); Color, Urine Yellow (P-Yellow)
[2018-12-06 14:05] LABS: Bacteria Many /hpf; Squamous Epithelial Cells Few /hpf (Few); White Blood Cells, Urine 0-2 /hpf (0-5)
== END | disposition home or self-care (01) ==
LOC: LAB SHORT 13:35 → LAB 13:35
PROVIDERS: Internal Medicine
DX: N39.0 Urinary tract infection, site not specified (principal)
CPT/HCPCS: 81001; 87086

== ENCOUNTER → 2019-01-17 | Outpatient (CLI) | payer OTHER ==
[2019-01-17 13:56] LABS: Source, Urine Clean Catch
[2019-01-17 18:12] LABS: Appearance, Urine Clear (Clear); Bilirubin, Urine Neg (Neg); Blood, Urine Neg (Neg); Color, Urine Yellow (P-Yellow); Glucose Qualitative, Urine Neg (Neg); Ketones, Urine 1+ (Neg); Leukocyte Esterase, Urine 1+ (Neg); Nitrite, Urine Neg (Neg); Protein, Urine Neg (Neg); Urobilinogen, Urine NORM (Normal)
[2019-01-17 18:30] LABS: Bacteria Many /hpf; Red Blood Cells, Urine 0-2 /hpf (0-2); Squamous Epithelial Cells Mod /hpf (Few)
== END ==
LOC: LAB 13:55 → LAB SHORT 13:55 → LAB FUT 12-29 08:50
PROVIDERS: Internal Medicine
DX: N39.0 Urinary tract infection, site not specified (principal)
CPT/HCPCS: 81001; 87086

== ENCOUNTER 2019-01-25 17:35 | Emergency (ER) | payer OTHER ==
[~2019-01-25] VITALS: Ht 167.6 cm; Wt 70.3 kg
[~2019-01-25 17:35] MED LIST changes: -CEPH500 PO; -DIVA250ER PO; -Neurontin 100100 MG PO; -OLAN5 PO; -Protonix40 MG PO
[2019-01-25 18:53] LABS: BASOPHILS ABSOLUTE AUTO 0.04 K/mm3 (0.00-0.23); BASOPHILS PERCENT AUTO 1 % (0-2); EOSINOPHILS ABSOLUTE AUTO 0.07 K/mm3 (0.00-0.68); EOSINOPHILS PERCENT AUTO 1 % (0-6); Hematocrit 34.6 % (33.0-51.0); Hemoglobin 11.7 g/dL (11.5-16.0); IMMATURE GRAN ABSOLUTE AUTO 0.02 K/mm3 (0.00-0.10); IMMATURE GRAN PERCENT AUTO 0 % (0-1); LYMPHOCYTES ABSOLUTE AUTO 2.96 K/mm3 (0.84-5.20); LYMPHOCYTES PERCENT AUTO 38 % (21-46); MONOCYTES ABSOLUTE AUTO 0.76 K/mm3 (0.16-1.47); MONOCYTES PERCENT AUTO 10 % (4-13); Mean Corpuscular HGB 30.4 pg (26.0-34.0); Mean Corpuscular HGB Conc 33.8 g/dL (31.5-36.5); Mean Corpuscular Volume 90 fL (80-100); Mean Platelet Volume 9.8 fL (9.1-12.4); NEUTROPHILS ABSOLUTE AUTO 3.93 K/mm3 (1.96-9.15); NEUTROPHILS PERCENT AUTO 51 % (41-73); Platelet Count 158 K/mm3 (150-400); RDW Coefficient Variation 12.6 % (11.7-14.2); RDW Standard Deviation 42.2 fL (35.1-46.3); Red Blood Cell Count 3.85 M/mm3 (3.80-5.20); White Blood Cell Count 7.78 K/mm3 (4.00-11.30)
[2019-01-25 19:11] LABS: Alanine Aminotransfer (ALT/SGP 10 U/L (12-78); Albumin, Blood 3.1 g/dL (3.4-5.0); Albumin/Globulin Ratio 0.8 (0.8-1.8); Alk Phos 66 U/L (50-136); Anion Gap 5 mmol/L (6-16); Aspartate Aminotrans (AST/SGOT 5 U/L (12-37); Bilirubin, Total 0.3 mg/dL (0.1-1.0); Blood Urea Nitrogen 9 mg/dL (8-24); Bun/Creatinine Ratio 15.1 (12.0-20.0); CO2, Blood 28 mmol/L (21-32); Calcium, Blood 8.4 mg/dL (8.5-10.1); Chloride, Blood 96 mmol/L (98-108); Globulin, Blood 3.7 g/dL (2.2-4.0); Glomerular Filtration Rate >60 (60-); Glucose, Blood 101 mg/dL (70-99); Potassium, Blood 3.5 mmol/L (3.5-5.5); Sodium, Blood 129 mmol/L (136-145); Total Protein, Blood 6.8 g/dL (6.4-8.2)
[2019-01-25 19:55] LABS: Source, Urine Clean Catch
[2019-01-25 19:59] LABS: Bilirubin, Urine Neg (Neg); Blood, Urine Neg (Neg); Glucose Qualitative, Urine Neg (Neg); Ketones, Urine 2+ (Neg); Leukocyte Esterase, Urine 1+ (Neg); Nitrite, Urine Neg (Neg); Protein, Urine Neg (Neg); Specific Gravity, Urine 1.015 (1.003-1.022); Urobilinogen, Urine NORM (Normal)
[2019-01-25 20:11] LABS: Appearance, Urine Clear (Clear); Color, Urine Yellow (P-Yellow)
[2019-01-25 20:18] LABS: Red Blood Cells, Urine Not Seen /hpf (0-2); Squamous Epithelial Cells Many /hpf (Few); White Blood Cells, Urine 0-2 /hpf (0-5)
[2019-01-25 20:19] LABS: Bacteria Many /hpf; Mucus Light (0-Heavy)
== END 2019-01-25 23:00 | disposition home or self-care (01) ==
LOC: ER 17:35
PROVIDERS: Emergency Medicine
DX: E87.1 Hypo-osmolality and hyponatremia (principal); R10.2 Pelvic and perineal pain; G89.29 Other chronic pain; Z88.8 Allergy status to other drugs, medicaments and biological substances; Z79.899 Other long term (current) drug therapy; F31.9 Bipolar disorder, unspecified; I10 Essential (primary) hypertension
CPT/HCPCS: 80053; 81001; 84484; 85025; 87077; 87086; 87186; 93005; 93010; 96360; 99284-25; J7030

== ENCOUNTER → 2019-02-08 | Outpatient (CLI) | payer OTHER ==
[~2019-02-08] MED LIST changes: +CEPH500 PO; +DIVA250ER PO; +Neurontin 100100 MG PO; +OLAN5 PO; +Protonix40 MG PO
[2019-02-08 17:20] LABS: Bilirubin, Urine Neg (Neg); Blood, Urine Neg (Neg); Glucose Qualitative, Urine Neg (Neg); Ketones, Urine 2+ (Neg); Leukocyte Esterase, Urine 1+ (Neg); Nitrite, Urine Neg (Neg); Protein, Urine Neg (Neg); Specific Gravity, Urine 1.015 (1.003-1.022); Urobilinogen, Urine NORM (Normal)
[2019-02-08 17:32] LABS: Appearance, Urine Clear (Clear); Color, Urine Yellow (P-Yellow)
[2019-02-08 17:33] LABS: Bacteria Mod /hpf; Red Blood Cells, Urine Not Seen /hpf (0-2); Squamous Epithelial Cells Mod /hpf (Few); White Blood Cells, Urine 0-2 /hpf (0-5)
== END | disposition home or self-care (01) ==
LOC: LAB 14:00 → LAB SHORT 14:00
PROVIDERS: Internal Medicine
DX: N39.0 Urinary tract infection, site not specified (principal)
CPT/HCPCS: 81001; 87086; 87147

== ENCOUNTER 2019-02-12 12:25 | Inpatient (IN) | payer OTHER ==
[~2019-02-12] VITALS: Ht 167.6 cm; Wt 70.0 kg
[~2019-02-12 12:25] MED LIST changes: -CEPH500 PO; -DIVA250ER PO; -Neurontin 100100 MG PO; -OLAN5 PO; -Protonix40 MG PO
[2019-02-12 13:28] LABS: BASOPHILS ABSOLUTE AUTO 0.03 K/mm3 (0.00-0.23); BASOPHILS PERCENT AUTO 1 % (0-2); EOSINOPHILS ABSOLUTE AUTO 0.11 K/mm3 (0.00-0.68); EOSINOPHILS PERCENT AUTO 2 % (0-6); Hematocrit 37.9 % (33.0-51.0); Hemoglobin 12.8 g/dL (11.5-16.0); IMMATURE GRAN ABSOLUTE AUTO 0.02 K/mm3 (0.00-0.10); IMMATURE GRAN PERCENT AUTO 0 % (0-1); LYMPHOCYTES ABSOLUTE AUTO 2.61 K/mm3 (0.84-5.20); LYMPHOCYTES PERCENT AUTO 44 % (21-46); MONOCYTES ABSOLUTE AUTO 0.56 K/mm3 (0.16-1.47); MONOCYTES PERCENT AUTO 9 % (4-13); Mean Corpuscular HGB 30.1 pg (26.0-34.0); Mean Corpuscular HGB Conc 33.8 g/dL (31.5-36.5); Mean Corpuscular Volume 89 fL (80-100); NEUTROPHILS ABSOLUTE AUTO 2.67 K/mm3 (1.96-9.15); NEUTROPHILS PERCENT AUTO 45 % (41-73); Platelet Count 188 K/mm3 (150-400); RDW Coefficient Variation 12.7 % (11.7-14.2); RDW Standard Deviation 41.6 fL (35.1-46.3); Red Blood Cell Count 4.25 M/mm3 (3.80-5.20)
[2019-02-12 13:53] LABS: Alanine Aminotransfer (ALT/SGP 15 U/L (12-78); Albumin, Blood 3.3 g/dL (3.4-5.0); Albumin/Globulin Ratio 0.8 (0.8-1.8); Alk Phos 87 U/L (50-136); Anion Gap 7 mmol/L (6-16); Aspartate Aminotrans (AST/SGOT 13 U/L (12-37); Bilirubin, Total 0.4 mg/dL (0.1-1.0); Blood Urea Nitrogen 7 mg/dL (8-24); Bun/Creatinine Ratio 8.6 (12.0-20.0); CO2, Blood 29 mmol/L (21-32); Calcium, Blood 8.9 mg/dL (8.5-10.1); Chloride, Blood 92 mmol/L (98-108); Creatinine, Blood 0.82 mg/dL (0.40-1.00); Glomerular Filtration Rate >60 (60-); Glucose, Blood 87 mg/dL (70-99); Potassium, Blood 4.6 mmol/L (3.5-5.5); Sodium, Blood 128 mmol/L (136-145); Total Protein, Blood 7.3 g/dL (6.4-8.2)
[2019-02-12 19:14] LABS: Source, Urine Clean Catch
[2019-02-12 19:44] LABS: Bilirubin, Urine Neg (Neg); Blood, Urine Neg (Neg); Glucose Qualitative, Urine Neg (Neg); Ketones, Urine 1+ (Neg); Leukocyte Esterase, Urine 1+ (Neg); Nitrite, Urine Neg (Neg); Protein, Urine Neg (Neg); Specific Gravity, Urine 1.005 (1.003-1.022); Urobilinogen, Urine NORM (Normal)
[2019-02-12 20:03] LABS: Appearance, Urine Clear (Clear); Color, Urine Yellow (P-Yellow)
[2019-02-12 20:04] LABS: White Blood Cells, Urine 0-2 /hpf (0-5)
[2019-02-12 20:05] LABS: Bacteria Rare /hpf; Red Blood Cells, Urine 0-2 /hpf (0-2); Squamous Epithelial Cells Few /hpf (Few)
[2019-02-12] MEDS ORDERED: Benztropine Mesy1 MG PO (21:16)
[2019-02-12] MEDS ORDERED: Protonix40 MG PO (21:16)
[2019-02-12] MEDS ORDERED: GABA300 PO (21:18)
[2019-02-12] MEDS ORDERED: Neurontin 100100 MG PO (21:18)
--- NOTE | 2019-02-12 23:35 | NUR ---
6825 ADMIT: PT ARRIVES TO ROOM 217 VIA GOURNEY AND IS SLIDE SHEET TRANSFERRED TO BED; PT TOLERATES WELL AND MOVES WELL IN BED. PT APPEARS ALERT AND ANSWERS QUESTIONS TO BEST OF ABILITY BUT ADMITS TO BEING A POOR HISTORIAN. PT STATES PAIN WELL CONTROLLED @ THIS TIME. PT ORIENTED TO CALL SYSTEM AND CALL LIGHT PLACED IN REACH.
--- NOTE | 2019-02-13 23:29 | NUR ---
output: pt has no urine output t/o today except for 1 incontinent void at 0915 this am. pt attempted x2 on bedpan but wad unable to go. bladder scan for 390. straight cath returned 500cc ambure urine.
[2019-02-14 04:54] LABS: Anion Gap 6 mmol/L (6-16); Blood Urea Nitrogen 9 mg/dL (8-24); Bun/Creatinine Ratio 12.1 (12.0-20.0); CO2, Blood 28 mmol/L (21-32); Calcium, Blood 8.6 mg/dL (8.5-10.1); Chloride, Blood 100 mmol/L (98-108); Creatinine, Blood 0.74 mg/dL (0.40-1.00); Glomerular Filtration Rate >60 (60-); Glucose, Blood 77 mg/dL (70-99); Potassium, Blood 3.8 mmol/L (3.5-5.5); Sodium, Blood 134 mmol/L (136-145)
--- NOTE | 2019-02-14 06:22 | NUR ---
PT HAS BEEN STABLE THIS SHIFT. HYPERTENSIVE AT TIMES. PT DROWSY AND SLEEPING MOST OF SHIFT. WAKES UP EASILY THIS AM BUT IS CONFUSED AT TIMES. BED ALARM IN USE. PT HAS SIGNIFICANT TREMORS. PT VERY UNSTEADY ON FEET, 2 PERSON ASSIST AND DOES NOT FOLLOW VERBAL CUES WELL. STRAIGHT CATH X1 AND PT VOIDED ON BEDPAN. ATTENDS IN PLACE FOR INCONTINENCE HX. PT HAS NO COMPLAINTS OF PAIN. HELD HS MEDS FOR DROWSINESS. THERAPY RECOMMENDS HOME HEALTH AT DISCHARGE.
--- NOTE | 2019-02-14 07:36 | NUR ---
ASSESSMENT PT SLEEPING WHEN RN ENTERED ROOM, WAKE EASILY. PT STATES 2010 WHEN ASKED WHAT YEAR IT IS, STATES 2019 WHEN ASKED WHO PRESIDENT IS. IS ABLE TO VERBALIZE WHERE SHE IS/WHY SHE IS HERE APPROPRIATLY. PT DENIES PAIN AT THIS TIME.
[2019-02-14 09:59] LABS: Valproic Acid 53.7 ug/mL (50.0-100.0)
--- NOTE | 2019-02-14 17:26 | NUR ---
SHIFT SUMMARY PT HAS REMAINED A/0 X'S 2 THROUGHOUT SHIFT. UP TO CHAIR 2 PERSON ASSIST. VOIDING. PT HAS NOT HAD ANY COMPLAINTS OF PAIN THIS SHIFT, ROXICODONE HELD. PLAN TO DC HOME WITH HH TOMORROW IF NO WORSENING SYMPTOMS.
--- NOTE | 2019-02-15 07:26 | NUR ---
PT HAS BEEN DROWSY AND SLEPT THIS SHIFT. WILL WAKE TO VERBAL STIMULI, ORIENTED TO SELF AND PLACE. BED ALARM ON FOR SAFETY PT IS CONFUSED. PT WEAK, 2 PERSON ASSIST TO TURN. INCONTINENT, ATTENDS IN PLACE. PT HAS FOUL SMELLING CLOUDY URINE. PLAN FOR PT TO GO TO HOME HEALTH PER THERAPY RECOMMENDATIONS. PT DOES NOT USE CALL LIGHT APPROPRIATELY
--- NOTE | 2019-02-15 12:07 | NUR ---
RECEIVED PHONE CALL FROM PATIENTS BOYFRIEND, OLIVER. OLIVER TELLS ME PRIOR TO ADMIT PATIENT WAS SCHEDULED BY HER PCP FOR A SCAN OF HER KIDNEYS DUE TO RECURRENT UTI'S. OLIVER IS REQUESTING KIDNEY SCAN BE COMPLETED DURING THIS HOSPITALIZATION. SPOKE WITH DR NAM REGARDING OLIVER'S REQUEST FOR KIDNEY SCAN
--- NOTE | 2019-02-15 12:13 | NUR ---
0930 PATIENT AWAKE, SITTING IN CHAIR. 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 PATIENT ASKING ABOUT BOYFRIEND OLIVER. PATIENT GIVEN BITE OF PUDDING AND SIPS OF WATER AND TOLERATES WITHOUT COUGHING. PATIENT MEDS GIVEN AND PATIENT POCKETS INTO HER CHEEK. AFTER NUMEROUS SIPS OF WATER AND BITES OF PUDDING PATIENT IS ABLE TO SWALLOW MEDS. PATIENT FALLING ASLEEP WHILE IN CHAIR- TWO PERSON ASSIST WITH GAIT BELT BACK TO CHAIR,
--- NOTE | 2019-02-15 17:53 | NUR ---
PATIENT DROWSY MUCH OF SHIFT AND AT TIMES RESTLESS AND FLAILING ARMS AND LEGS WHILE LYING IN BED. PATIENT AWAKENS FOR SHORT PERIODS OF TIME DURING PATIENT CARE AND IS ORIENTED TO PERSON, PLACE. PATIENT DENIES PAIN. ASSISTED PATIENT WITH PO FLUIDS BUT DOES NOT STAY AWAKE FOR LONG ENOUGH PERIODS TO SAFELY TAKE SOLID FOODS
--- NOTE | 2019-02-16 13:23 | NUR ---
PT UP TO CHAIR WITH THERAPY.
--- NOTE | 2019-02-16 13:25 | NUR ---
PT IN AND OUT OF SLEEP EARLY IN THE MORNING, SLOW TO RESPOND. PT GOT PATIENT UP TO THE CHAIR. PATIENT HAS BEEN MORE ALERT AND TALKATIVE SINCE GETTING UP TO CHAIR.
--- NOTE | 2019-02-16 14:48 | NUR ---
CALLED DR. NAM R/T PATIENTS BEHAVIORS AND MENTAL STATUS. NO NEW ORDERS AT THIS TIME. WILL CONTINUE TO MONITOR. PATIENT IS CURRENTLY LAYING IN BED. PATIENTS PUPILS WERE MORE DILATED COMPARED TO THIS AM, PATIENT WAS SPEAKING NONSENSICALLY AND NOT MAKING SENSE. BED ALARM ON.
--- NOTE | 2019-02-16 15:45 | NUR ---
ROUNDED ON PT. PUPILS REMAIN DIALATED. PT WAS ABLE TO MAINTAIN A SHORT CONVERSATION AND ANSWER QUESTIONS APPROPRIATELY. PT REMAINS CONFUSED, WILL CONTINUE MONITOR.
--- NOTE | 2019-02-16 16:42 | NUR ---
SHIFT SUMMARY PT HAS BEEN ALTERNATING BETWEEN ALERT/CONFUSED AND SOMNOLENT/CONFUSED. WHEN ALERT THE PATIENT CAN HOLD A CONVERSATION AND RESPOND APPROPRIATLY. WHEN SOMNOLENT THE PATIENT IS HARD TO UNDERSTAND AND SPEAKS NONSENSICALLY. PT HAS ATE WELL TODAY, FED HERSELF FOR BREAKFAST AND LUNCH. C/O SEVERE PAIN, MEDICATED PER EMAR WITH 650MG TYLENOL X2. TOLERATES WELL. UP TO HER CHAIR WITH PT THIS AM. BED ALARM IS ON, WILL CONTINUE TO MONITOR PATIENT.
--- NOTE | 2019-02-17 01:41 | NUR ---
PT WITH DILATED PUPILS AND MENTATION CHANGES HAVE BEEN ONGOING REPORTED PER DAY RN WITH INTERMITENT IMRPOVEMENT.REPORTED HOSPITALIST CHECKED PT WITH PUPILS DECREASING IN SIZE AND MORE REACTIVE BY THE TIME DOCTOR ARRIVED TO BEDSIDE.REPORTED MEDS HAVE BEEN SCALED DOWN OVER TIME. TONIGHT,PT INITIALLY MORE INTERACTIVE ALTHOUGH CONFUSED.BED ALARM MAINTAINED. PT HAS BECOME SLOW TO ROUSE.APPEARS POSSIBLE APNEAC PERIODS.ALTHOUGH SATS 92 % WITH RECENT VS ON RA.PUPLIS CONTINUE DILATED WITH SLOW RESPONSES.I CALLED DR CORRAL REGARDING STATUS. DISCUSSED HX AND AM MEDS /PM MEDS. ORDERED ABG
[2019-02-17 01:58] LABS: PCO2 Arterial 41.3 mmHg (35-45); PO2 Arterial 93.4 mmHg (80-100); pH Blood Arterial 7.45 (7.35-7.45)
--- NOTE | 2019-02-17 06:26 | NUR ---
SUMMARY PT MORE ALERT THIS AM.REPORTS FEELS BETTER. WATCHING TV.
--- NOTE | 2019-02-17 15:21 | NUR ---
CHAIR ALARM ACTIVATED. FOUND PATIENT ATTEMPTING TO TRANSFER SELF TO BED. 2 RN ASSIST TO BED AND REPOSITIONED. BED ALARM TURNED ON. PATIENT STATES SHE IS COMFORTABLY RESTING IN BED.
--- NOTE | 2019-02-17 17:27 | NUR ---
SPOKE TO DR. NAM ABOUT PATIENTS INCREASED SOMNOLENCE AND CONFUSION AFTER TAKING MORNING MEDS. PATIENT SEEMS TO BECOME MORE ALERT THE DAY PROGRESSED. ORDERS FOR DEPAKOTE CHANGED TO 250MG PO DAILY AND ORDERS FOR COGENTIN CHANGED TO 0.5MG PO BID.
--- NOTE | 2019-02-17 17:29 | NUR ---
SHIFT SUMMARY PATIENT WAS ALERT AND ANSWERING QUESTIONS APPROPRIATLY IN THE MORNING. BECAME SOMNOLENT AND MORE CONFUSED AFTER THE MORNING MED PASS. SHE WOULD AWAKEN AND ANSWER QUESTIONS BUT WAS DIFFICULT TO AROUSE. PATIENT IS NOW EASY TO WAKE AND WILL HOLD A CONVERSATION ALBEIT CONFUSED. SHE HAS GOTTEN UP TO HER CHAIR WITH GAIT BELT AND FWW. SHE SET OFF THE CHAIR ALARM ONE TIME GETTING OUT OF BED. TRANSFERED BACK TO BED WITH 2 ASSIST. TOLERATING PO WELL, NO DIFFICULTIES SWALLOWING. ONE COMPLAINT OF PAIN TODAY, BUT PATIENT FELL ASLEEP BEFORE MEDS COULD BE ADMINISTERED. BED ALARM IS ON AND PATIENT IS RESTING IN BED.
--- NOTE | 2019-02-18 07:36 | NUR ---
SHIFT SUMMARY INCONTINENT IN BED AFTER REMOVING HER ATTENDS X2 THIS SHIFT. PT CLEANED AND REDRESSED. SITTING UP IN CHAIR AT BEDSIDE WHILE LINEN CHANGED. HAS BEEN PLEASANTLY CONFUSED AND COOPERATIVE THIS SHIFT. OPENS EYES TO VERBAL STIMULI. HAS DENIED PAIN OR DISCOMFORT THIS SHIFT. DENEIS FIRTHER NEEDS OR WANTS AT THIS TIME. SAFETY MEASURES IN PLACE. HAND OFF GIVEN TO ONCOMING SHIFT USING SBAR.
[2019-02-18 11:46] LABS: BASOPHILS ABSOLUTE AUTO 0.04 K/mm3 (0.00-0.23); BASOPHILS PERCENT AUTO 0 % (0-2); EOSINOPHILS ABSOLUTE AUTO 0.15 K/mm3 (0.00-0.68); EOSINOPHILS PERCENT AUTO 1 % (0-6); Hematocrit 38.6 % (33.0-51.0); Hemoglobin 13.2 g/dL (11.5-16.0); IMMATURE GRAN ABSOLUTE AUTO 0.04 K/mm3 (0.00-0.10); IMMATURE GRAN PERCENT AUTO 0 % (0-1); LYMPHOCYTES PERCENT AUTO 26 % (21-46); MONOCYTES ABSOLUTE AUTO 1.43 K/mm3 (0.16-1.47); MONOCYTES PERCENT AUTO 14 % (4-13); Mean Corpuscular HGB 29.4 pg (26.0-34.0); Mean Corpuscular HGB Conc 34.2 g/dL (31.5-36.5); Mean Platelet Volume 9.7 fL (9.1-12.4); NEUTROPHILS ABSOLUTE AUTO 6.12 K/mm3 (1.96-9.15); NEUTROPHILS PERCENT AUTO 58 % (41-73); Platelet Count 277 K/mm3 (150-400); RDW Coefficient Variation 12.9 % (11.7-14.2); RDW Standard Deviation 39.8 fL (35.1-46.3); Red Blood Cell Count 4.49 M/mm3 (3.80-5.20); White Blood Cell Count 10.48 K/mm3 (4.00-11.30)
[2019-02-18 11:57] LABS: Mean Corpuscular Volume 86 fL (80-100)
[2019-02-18 12:00] LABS: Anion Gap 8 mmol/L (6-16); Blood Urea Nitrogen 9 mg/dL (8-24); Bun/Creatinine Ratio 14.8 (12.0-20.0); CO2, Blood 25 mmol/L (21-32); Calcium, Blood 9.4 mg/dL (8.5-10.1); Chloride, Blood 97 mmol/L (98-108); Creatinine, Blood 0.61 mg/dL (0.40-1.00); Glomerular Filtration Rate >60 (60-); Glucose, Blood 129 mg/dL (70-99); Sodium, Blood 130 mmol/L (136-145)
[2019-02-18 13:42] LABS: Source, Urine Clean Catch
[2019-02-18 13:55] LABS: Bilirubin, Urine Neg (Neg); Blood, Urine 5+ (Neg); Glucose Qualitative, Urine Neg (Neg); Ketones, Urine Neg (Neg); Leukocyte Esterase, Urine 3+ (Neg); Nitrite, Urine Pos (Neg); Protein, Urine 2+ (Neg); Specific Gravity, Urine 1.005 (1.003-1.022); Urobilinogen, Urine NORM (Normal)
[2019-02-18 14:08] LABS: Appearance, Urine Cloudy (Clear); Bacteria Many /hpf; Color, Urine Yellow (P-Yellow); Squamous Epithelial Cells Rare /hpf (Few); White Blood Cells, Urine TNTC /hpf (0-5)
[2019-02-18 14:09] LABS: Mucus Light (0-Heavy)
--- NOTE | 2019-02-18 18:38 | NUR ---
SHIFT SUMMARY: NO ACUTE CHANGES THIS SHIFT. TACHO PARTICIPATED WITH PT AND OT TODAY. SHE HAS A BED ALARM AND CHAIR ALARM IN PLACE. UA DONE TODAY. NEW ORDER FOR ROCEPHIN. HAS HAD EPISODES OF COUGHING AFTER PO INTAKE, SIPPY CUP PROVIDED. CALL LIGHT IN REACH.
[2019-02-19] MEDS ORDERED: Benztropine Mesy1 MG PO (11:28)
[2019-02-19] MEDS ORDERED: DIVA250ER PO (11:29)
[2019-02-19] MEDS ORDERED: DULO60 PO (11:30)
[2019-02-19] MEDS ORDERED: CEPH500 PO (11:31)
[2019-02-19] MEDS ORDERED: OLAN5 PO (11:31)
--- NOTE | 2019-02-19 19:00 | NUR ---
SHIFT SUMMARY PT A&OX3 FOR MOST OF SHIFT WITH OCC CONFUSION - REORIENTS EASILY, USES CALL LIGHT APPROPRIATELY, BED ALARM AND TAB ALARM USED FOR SAFETY. DENIES PAIN. DENIES N&V, LOIDA PO, GOOD PO INTAKE. AMB W/1 MIN ASSIST TO BSC, CHAIR OR BED. REPORT GIVEN TO SUMMAR RN.
--- NOTE | 2019-02-19 19:14 | NUR ---
1913: PT DRESSED IN HOME CLOTHES AND SITTING UP TO CHAIR; AWAIT SIGNIFICANT OTHER ARRIVAL FOR MD HOME WITH HOME HEALTH TONIGHT.
--- NOTE | 2019-02-19 20:00 | NUR ---
2000: PT DRESSED IN STREET CLOTHES FROM HOME WITH STAFF ASSIST. 20G PERIPHERAL IV IN LEFT AC DC'D AND WRAPPED GAUZE AND COBAN. PT GIVEN ALL HS MEDICATIONS AND REFUSED LOVENOX SHOT.
--- NOTE | 2019-02-19 20:17 | NUR ---
2017 DISCHARGE: PT DC FROM FACILITY TO HOME WITH HOME HEALTH F/U. PT AND SIGNIFICANT OTHER VERBALIZE UNDERSTANDING OF ALL DC INSTRUCTIONS AND NEW MEDICATION ORDERS THAT WILL BE READY AT [facility] TOMORROW. PT DISCHARGES WITH ALL PERSONAL BELONGINGS AND IS WC ESCORTED TO [facility] AND ASSISTED INTO PRIVATE VEHICLE.
== END 2019-02-19 21:34 | disposition home or self-care (01) | DRG 551 ==
LOC: ER 12:25 → SURS 12:26
PROVIDERS: Emergency Medicine; Hospitalist; Internal Medicine; ADMIT Hospitalist
DX: S22.050A Wedge compression fracture of T5-T6 vertebra, initial encounter for closed fracture (principal); G92 Toxic encephalopathy; E87.1 Hypo-osmolality and hyponatremia; N39.0 Urinary tract infection, site not specified; I10 Essential (primary) hypertension; Z87.891 Personal history of nicotine dependence; F31.9 Bipolar disorder, unspecified; E03.9 Hypothyroidism, unspecified; Z66 Do not resuscitate; Z90.49 Acquired absence of other specified parts of digestive tract; M81.0 Age-related osteoporosis without current pathological fracture; W19.XXXA Unspecified fall, initial encounter
CPT/HCPCS: 36415; 36600; 70450; 71046; 73502; 74176; 80048; 80053; 80164; 81001; 82803; 83880; 84260; 84443; 84484; 84550; 85025; 87077; 87086; 87186; 93005; 93010; 96361; 96372; 96374; 97110; 97116; 97162; 97166; 97530; 97535; 99285-25; A9270; G0008; G0378; J0696; J1650; J2405; J7030; J7050

== ENCOUNTER → 2019-06-04 | Outpatient (CLI) | payer OTHER ==
[~2019-06-04] MED LIST changes: +AMLO5 PO; +Anti-Diarrheal2 MG PO; +BACL10 PO; +BISA10S PR; +BREO ELLIPTA 11 EACH INH; +Benztropine Me0.5 MG PO; +CEPH500 PO; +DIVA250ER PO; +DOCU100 PO; +Divalproex Sod250 MG PO; +Feverall650 MG PR; +Fleet Enema132 ML PR; +IBUP600 PO; +LIDOCAINE PAIN1 EACH TOP; +LIOT25 PO; +MILK OF MA400 MG/5 M PO; +MIRALAX17 G1 PO; +Neurontin 100100 MG PO; +Nicoderm Cq1 EACH TOP; +OLAN5 PO; +PEPCID40 MG PO; +PROP60 PO; +PRUNE JUICE PO; +Protonix40 MG PO
[2019-06-04 13:00] LABS: Adenovirus F 40/41 Not Detected (NOT DETECT); Astrovirus Not Detected (NOT DETECT); Campylobacter Sp Not Detected (NOT DETECT); Cryptosporidium Not Detected (NOT DETECT); Cyclospora Cayetanensis Not Detected (NOT DETECT); E. Coli O157 Not Detected (NOT DETECT); Entamoeba Histolytica Not Detected (NOT DETECT); Enteroaggregative E. coli-EAEC Not Detected (NOT DETECT); Enteropathogenic E. coli-EPEC Not Detected (NOT DETECT); Enterotoxigenic E. coli-ETEC Not Detected (NOT DETECT); Giardia Lamblia Not Detected (NOT DETECT); Norovirus GI/GII Not Detected (NOT DETECT); Plesiomonas Shigelloides Not Detected (NOT DETECT); Rotavirus A Not Detected (NOT DETECT); Salmonella Sp Not Detected (NOT DETECT); Sapovirus Not Detected (NOT DETECT); Shiga Toxin-prod E. coli-STEC Not Detected (NOT DETECT); Shigella/Enteroin E. coli-EIEC Not Detected (NOT DETECT); Vibrio Cholerae Not Detected (NOT DETECT); Vibrio Sp Not Detected (NOT DETECT); Yersinia Enterocolitica Not Detected (NOT DETECT)
== END | disposition home or self-care (01) ==
LOC: LAB UVN 01:00 → EDSTATUS 14:48 → LAB UVN 14:50
PROVIDERS: Internal Medicine
DX: R19.7 Diarrhea, unspecified (principal)
CPT/HCPCS: 0097U; 87324

== ENCOUNTER → 2019-06-24 | Outpatient (CLI) | payer OTHER | END | disposition home or self-care (01) | LOC: EDSTATUS 14:51 → LAB UVN 18:05 | DX: R19.7 Diarrhea, unspecified (principal) | CPT/HCPCS: 87493 ==

== ENCOUNTER 2019-07-03 02:57 | Emergency (ER) | payer OTHER ==
[~2019-07-03] VITALS: Ht 167.6 cm; Wt 65.8 kg
[~2019-07-03 02:57] MED LIST changes: -AMLO5 PO; -MIRALAX17 G1 PO; -PROP60 PO
[2019-07-04] MEDS ORDERED: MIRALAX17 G1 PO (16:13)
== END 2019-07-03 03:26 | disposition home or self-care (01) ==
LOC: ER 02:57
DX: I10 Essential (primary) hypertension (principal); Z88.8 Allergy status to other drugs, medicaments and biological substances; Z79.899 Other long term (current) drug therapy; F31.9 Bipolar disorder, unspecified; M54.9 Dorsalgia, unspecified; G89.29 Other chronic pain; F17.210 Nicotine dependence, cigarettes, uncomplicated
CPT/HCPCS: 99283

== ENCOUNTER 2019-07-04 12:58 | Inpatient (IN) | payer OTHER ==
[~2019-07-04] VITALS: Ht 177.8 cm; Wt 68.4 kg
[2019-07-04 14:48] LABS: BASOPHILS ABSOLUTE AUTO 0.08 K/mm3 (0.00-0.23); BASOPHILS PERCENT AUTO 1 % (0-2); EOSINOPHILS ABSOLUTE AUTO 0.03 K/mm3 (0.00-0.68); EOSINOPHILS PERCENT AUTO 0 % (0-6); Hematocrit 37.4 % (33.0-51.0); Hemoglobin 12.1 g/dL (11.5-16.0); IMMATURE GRAN ABSOLUTE AUTO 0.04 K/mm3 (0.00-0.10); IMMATURE GRAN PERCENT AUTO 0 % (0-1); LYMPHOCYTES ABSOLUTE AUTO 2.07 K/mm3 (0.84-5.20); LYMPHOCYTES PERCENT AUTO 18 % (21-46); MONOCYTES ABSOLUTE AUTO 1.23 K/mm3 (0.16-1.47); MONOCYTES PERCENT AUTO 11 % (4-13); Mean Corpuscular HGB 28.6 pg (26.0-34.0); Mean Corpuscular HGB Conc 32.4 g/dL (31.5-36.5); Mean Corpuscular Volume 88 fL (80-100); Mean Platelet Volume 10.5 fL (9.1-12.4); NEUTROPHILS ABSOLUTE AUTO 8.06 K/mm3 (1.96-9.15); NEUTROPHILS PERCENT AUTO 70 % (41-73); Platelet Count 507 K/mm3 (150-400); RDW Coefficient Variation 12.6 % (11.7-14.2); RDW Standard Deviation 40.5 fL (35.1-46.3); Red Blood Cell Count 4.23 M/mm3 (3.80-5.20); White Blood Cell Count 11.51 K/mm3 (4.00-11.30)
[2019-07-04 14:58] LABS: Albumin, Blood 2.9 g/dL (3.4-5.0); Anion Gap 10 mmol/L (6-16); Blood Urea Nitrogen 28 mg/dL (8-24); CO2, Blood 27 mmol/L (21-32); Calcium, Blood 9.6 mg/dL (8.5-10.1); Chloride, Blood 98 mmol/L (98-108); Glucose, Blood 119 mg/dL (70-99); Potassium, Blood 3.4 mmol/L (3.5-5.5); Sodium, Blood 135 mmol/L (136-145)
[2019-07-04 15:02] LABS: Alanine Aminotransfer (ALT/SGP 19 U/L (12-78); Albumin/Globulin Ratio 0.5 (0.8-1.8); Alk Phos 103 U/L (50-136); Aspartate Aminotrans (AST/SGOT 13 U/L (12-37); Bilirubin, Total 0.5 mg/dL (0.1-1.0); Bun/Creatinine Ratio 44.4 (12.0-20.0); Creatinine, Blood 0.63 mg/dL (0.40-1.00); Glomerular Filtration Rate >60 (60-); Total Protein, Blood 8.9 g/dL (6.4-8.2)
[2019-07-04 15:06] LABS: Free Thyroxine 1.84 ng/dL (0.70-1.60); Troponin I <0.015 ng/mL (0.000-0.040)
[2019-07-04 15:08] LABS: Thyroid Stimulating Hormone 0.023 uIU/mL (0.360-4.800)
[2019-07-04] MEDS ORDERED: MIRALAX17 G1 PO (16:13)
--- NOTE | 2019-07-04 19:38 | NUR ---
ITCHING: PATIENT IS HAVING GENERALIZED ITCHING, NO RASH OBSERVED BUT THERE IS SOME PINKNESS OBSERVED AT CHESH LEAD PATCHES SITES. BAM ADAN AUTOMOBILE SERVICE ADVISOR IS NOTIFIED AND AN ORDER FOR IV BENADRY IS OBTAINED AND MED IS GIVEN. PEDIATRIC LEADS ARE PLACE VS ADULT LEADS WHICH ARE REMOVED. PATIENT IS VERY TREMULOUS AND BP HAS TO BE DONE MANUALLY.
--- NOTE | 2019-07-04 22:32 | NUR ---
HYPERTENSION/ITCHING: PATIENT CONTINUES TO ITCH AND PULL TELI LEADS OFF. BP IS ELEVATED. BAM ADAN IS NOTIFIED AND ORDERS FOR HYDRACORTISONE CREAM AND BENADRYL ARE OBTAINED.
--- NOTE | 2019-07-04 22:34 | NUR ---
LABS: PATIENT IS INC. OF URINE, UA AND TOX SCREEN ARE ORDERED. PATIENT IS STRAIGHT CATHED FOR SAMPLES. PATIENT TOLERATED PROCEEDURE WELL. WELL.
[2019-07-04 22:50] LABS: Source, Urine Clean Catch
[2019-07-04 22:54] LABS: Bilirubin, Urine Neg (Neg); Blood, Urine 2+ (Neg); Glucose Qualitative, Urine Neg (Neg); Ketones, Urine 2+ (Neg); Leukocyte Esterase, Urine 1+ (Neg); Nitrite, Urine Neg (Neg); Protein, Urine 2+ (Neg); Specific Gravity, Urine 1.015 (1.003-1.022); Urobilinogen, Urine 1+ (Normal)
[2019-07-04 23:05] LABS: Appearance, Urine Clear (Clear); Color, Urine Yellow (P-Yellow)
[2019-07-04 23:07] LABS: Bacteria Many /hpf; Red Blood Cells, Urine 0-2 /hpf (0-2); Squamous Epithelial Cells Rare /hpf (Few)
[2019-07-04 23:09] LABS: U Amphetamine Screen Not Detected; U Barbituate Screen Not Detected; U Benzodiazapine Screen Not Detected; U Buprenorphine Screen Not Detected; U Cannabinoids Screen Not Detected; U Cocaine Screen Not Detected; U Methadone Screen Not Detected; U Methamphetamine Screen Not Detected; U Opiates Screen Not Detected; U Oxycodone Screen Not Detected; U Propoxyphene Screen Not Detected
--- NOTE | 2019-07-05 01:38 | NUR ---
PAIN/ITCHING: PATIENT WAS GIVEN A SECOND DOSE OF BENADRY FOR ITCHING AND IV TORADOL WAS GIVEN FOR PAIN. PATIENT CONTINUED TO REMOVE TELI. WHILE ON TELI PATIENT REMAINS IN NSR. BAM ADAN MATERIAL PLANNING ANALYST IS NOTIFIED PATIENT IS REFUSING TELI. WITH TELI PADS OFF SKIN PATIENT IS RESTING QUIETLY, GOOD EFFECT FROM MEDS GIVEN.
[2019-07-05 05:14] LABS: BASOPHILS ABSOLUTE AUTO 0.04 K/mm3 (0.00-0.23); BASOPHILS PERCENT AUTO 1 % (0-2); EOSINOPHILS ABSOLUTE AUTO 0.13 K/mm3 (0.00-0.68); EOSINOPHILS PERCENT AUTO 2 % (0-6); Hematocrit 33.5 % (33.0-51.0); Hemoglobin 11.1 g/dL (11.5-16.0); IMMATURE GRAN ABSOLUTE AUTO 0.02 K/mm3 (0.00-0.10); IMMATURE GRAN PERCENT AUTO 0 % (0-1); LYMPHOCYTES ABSOLUTE AUTO 3.07 K/mm3 (0.84-5.20); LYMPHOCYTES PERCENT AUTO 41 % (21-46); MONOCYTES ABSOLUTE AUTO 0.71 K/mm3 (0.16-1.47); MONOCYTES PERCENT AUTO 10 % (4-13); Mean Corpuscular HGB 28.8 pg (26.0-34.0); Mean Corpuscular HGB Conc 33.1 g/dL (31.5-36.5); Mean Corpuscular Volume 87 fL (80-100); Mean Platelet Volume 10.8 fL (9.1-12.4); NEUTROPHILS ABSOLUTE AUTO 3.49 K/mm3 (1.96-9.15); NEUTROPHILS PERCENT AUTO 47 % (41-73); Platelet Count 378 K/mm3 (150-400); RDW Coefficient Variation 12.4 % (11.7-14.2); RDW Standard Deviation 39.8 fL (35.1-46.3); Red Blood Cell Count 3.86 M/mm3 (3.80-5.20); White Blood Cell Count 7.46 K/mm3 (4.00-11.30)
[2019-07-05 05:30] LABS: Anion Gap 8 mmol/L (6-16); Blood Urea Nitrogen 20 mg/dL (8-24); CO2, Blood 30 mmol/L (21-32); Calcium, Blood 9.3 mg/dL (8.5-10.1); Chloride, Blood 101 mmol/L (98-108); Creatinine, Blood 0.56 mg/dL (0.40-1.00); Glomerular Filtration Rate >60 (60-); Glucose, Blood 80 mg/dL (70-99); Magnesium, Blood 1.7 mg/dL (1.6-2.4); Potassium, Blood 3.4 mmol/L (3.5-5.5); Sodium, Blood 139 mmol/L (136-145)
--- NOTE | 2019-07-05 06:00 | NUR ---
SHIFT SUMMARY: PATIENT IS RESTING COMFORTABLE AFTER BENADRYL AND TORADOL WERE GIVEN. NO TREMORS ARE OBSERVED DURING SLEEP BUT ANY STIMULI, VERBAL OR TACTILE WILL INDUCE TREMORS. BP'S ARE ELEVATED BUT DO TO TREMORS THEY ARE VERY DIFFICULT TO OBTAIN AND ACCURACY CAN NOT BE ASSUMED. PATIENT IS IN ENTERIC/CONTACT ISOLATION FOR COLLECTION OF PENDING GI PANEL. BED ALARM IS ON FOR SAFETY.
[2019-07-05 10:09] LABS: Valproic Acid 24.4 ug/mL (50.0-100.0)
--- NOTE | 2019-07-05 10:34 | NUR ---
Echocardiogram completed.
[2019-07-05] MEDS ORDERED: LIOT25 PO (12:57)
[2019-07-05] MEDS ORDERED: LEVSOD75 PO (12:58)
--- NOTE | 2019-07-05 13:16 | NUR ---
Spiritual care visit conducted. Patient is lying in bed and alert. Patient answers simple questions well but struggles with questions that have depth or complexity. Patient tells me about family history, her basic spiritual beliefs and her living arrangements. I listen empathically, reinforce helpful attitudes and provide a calming presence and prayer. Patient responds well and shows signs of an elevated mood. I will continue to remain available to patient and family.
--- NOTE | 2019-07-05 15:48 | NUR ---
SHIFT SUMMARY PT IS ALERT AND ORIENTED TO HERSELF AND SITUATION AT TIMES. SHE HAS NO C/O OF PAIN AND DENIES ANY ABDOMINAL DISCOMFORT. THIS NURSE SPOKE WITH PRIMARY NURSE AT [facility] WHO REPORTS THAT HER BASELINE IS TO BE A/O X 4. PT HAS HAD A FORMED BM TODAY. AND ISO ORDERS WERE DCD BY DOCTOR DUE TO NO LOOSE STOOLS. SHE CONTINUES TO C/O ITCHING AND CREAM WAS APPLIED ORDERED WELL BENADRYL, SHE CONTINUES TO BE RESTLESS IN BED. ECHO WAS COMPLETED ORDERED. PT WAS ASSISTED WITH A BED BATH AND LINENS CHANGED. PT IS ABLE TO MAKE HER NEEDS KNOWN AT TIMES. CALL LIGHT IS IN REACH AND BED ALARM IS ON FOR SAFETY.
--- NOTE | 2019-07-06 04:37 | NUR ---
SHIFT SUMMARY ADMITTED FOR AMS. DX: THYROID PARALYSIS VS. THYROID STORM. WAS HYPOKALEMIC @ 3.4, AWAITING THIS MORNING'S LABS. FULL CODE. ORDER FOR TELEMETRY DC'D THIS SHIFT DUE TO PT REFUSAL TO WEAR IT. T3 & T4 ELEVATED ON ADMIT. A&O X3 (A&O X4 IS BASELINE). RA, INCONTINENT/CONTINENT, MECH SOFT DIET. ORDER IS FOR BEDREST, BUT MAY USE BSC (WITH 1-2 PERSON TO ASSIST). WATCHING DEPAKOTE LEVELS/DOSEAGE. FROM [facility]. HX: HYPOTHYROID, BIPOLAR, HTN.
[2019-07-06 05:26] LABS: Anion Gap 8 mmol/L (6-16); Blood Urea Nitrogen 10 mg/dL (8-24); Bun/Creatinine Ratio 21.6 (12.0-20.0); CO2, Blood 28 mmol/L (21-32); Calcium, Blood 9.6 mg/dL (8.5-10.1); Chloride, Blood 101 mmol/L (98-108); Creatinine, Blood 0.46 mg/dL (0.40-1.00); Glomerular Filtration Rate >60 (60-); Glucose, Blood 95 mg/dL (70-99); Potassium, Blood 3.6 mmol/L (3.5-5.5); Sodium, Blood 137 mmol/L (136-145)
--- NOTE | 2019-07-06 17:59 | NUR ---
SHIFT SUMMARY. PT IS LETHARGIC WITH PERIODS OF ALERTNESS, AWAKENS EASILY WITH VERBAL STIMULATION. ORIENTATED TO SELF, AND PLACE, WAS ABLE TO RECALL YEAR. PT DENIES N/V, SOB. PT REQUIRES FEEDING ASSISTANCE WITH MEALS. PT REPORTS CHRONIC BACK PAIN, HEAT PAD IN PLACE, PT REPORTS RELIEF. SPOKE WITH PT'S DAUGHTER, SHE REPORTS THAT SHE WILL BE DRIVING TO SEE PT FROM [facility] TOMORROW AND PLANS TO STAY FOR A FEW DAYS. NO NEW CHANGES OR CONCERNS.
--- NOTE | 2019-07-07 04:23 | NUR ---
SHIFT SUMMARY ADMITTED FOR AMS. FULL CODE. FROM [facility]. A&O X3. CAREGIVERS @ [facility] STATED SHE IS NORMALLY A&O X4. MECHANICAL SOFT DIET, RA, INCONTINENT/CONTINENT TO [facility]. T3 & T4 LEVELS ELEVATED ON ADMIT, ALONG WITH BODY TREMORS. K+ LEVELS HAD BEEN LOW ON ADMIT BUT NORMALIZED ON 07/06/19 AM LABS. HX: HYPOTHYROID, BIPOLAR, AND HTN. AWAITING MORNING LABS.
--- NOTE | 2019-07-07 17:05 | NUR ---
SHIFT SUMMARY. PT MORE ALERT THIS SHIFT COMPARED TO YESTERDAY, ANSWERS SOME QUESTIONS APPROPRIATEY AND IS MORE INTERACTIVE WITH STAFF. PT REPORTS PAIN TO LOWER BACK AND H/A, PAIN MANAGED WELL WITH HEATING PAD AND APAP. PT DENIES SOB, N/V. PT UP TO CHAIR FOR BREAKFAST. WILL ATTEMPT TO GET OOB FOR DINNER. PT'S DAUGHTER IN TO VISIT THIS EVENING, PT IS THE MOST INTERACTIVE, ALERT AND APPROPRIATE COMPARED TO YESTERDAY AND TODAY. NO OTHER CHANGES OR CONCERNS.
--- NOTE | 2019-07-08 04:58 | NUR ---
SEQUINS WINDER SUMMARY PT MORE AWAKE AND ORIENTED TONIGHT. KNEW WHERE SHE WAS AND THE YEAR. STILL CONFUSED/FORGETFUL ABOUT SOME THINGS. PT CONSTANTLY USING CALL LIGHT FOR THINGS THAT WERE ALREADY ADDRESSED BY STAFF, PT FORGETS. TREATED FOR PAIN X1 WITH TYLENOL. VSS, WILL CONTINUE TO MONITOR.
[2019-07-08 05:03] LABS: Hematocrit 36.1 % (33.0-51.0); Hemoglobin 11.8 g/dL (11.5-16.0); Mean Corpuscular HGB 28.5 pg (26.0-34.0); Mean Corpuscular HGB Conc 32.7 g/dL (31.5-36.5); Mean Corpuscular Volume 87 fL (80-100); Mean Platelet Volume 11.3 fL (9.1-12.4); Platelet Count 301 K/mm3 (150-400); RDW Coefficient Variation 12.3 % (11.7-14.2); RDW Standard Deviation 38.7 fL (35.1-46.3); Red Blood Cell Count 4.14 M/mm3 (3.80-5.20); White Blood Cell Count 7.93 K/mm3 (4.00-11.30)
[2019-07-08 06:17] LABS: Anion Gap 6 mmol/L (6-16); Blood Urea Nitrogen 8 mg/dL (8-24); Bun/Creatinine Ratio 15.7 (12.0-20.0); CO2, Blood 27 mmol/L (21-32); Calcium, Blood 9.6 mg/dL (8.5-10.1); Chloride, Blood 102 mmol/L (98-108); Creatinine, Blood 0.51 mg/dL (0.40-1.00); Glomerular Filtration Rate >60 (60-); Glucose, Blood 95 mg/dL (70-99); Potassium, Blood 3.5 mmol/L (3.5-5.5); Sodium, Blood 135 mmol/L (136-145)
[2019-07-08] MEDS ORDERED: PROP60 PO (15:25)
[2019-07-08] MEDS ORDERED: AMLO5 PO (15:26)
--- NOTE | 2019-07-08 17:20 | NUR ---
1700 PT DISCHARGED HOME VIA W/C TRANSPORT TO [facility]. BREIF CHANGED JUST PRIOR TO D/C. 1701 REPORT GIVEN TO LN AT [facility]. PT ALERT ALL SHIFT, ROXIE, CURTS APPROPRIATELY. SISTER AT BEDSIDE THIS AM. NO NEW CHANGES OR CONCERNS.
== END 2019-07-08 16:59 | DRG 91 ==
LOC: ER 12:58 → MEDS 16:16 → ENPENDDIS 07-08 16:27 → MEDS 07-08 16:59
PROVIDERS: Emergency Medicine; Internal Medicine; ADMIT Internal Medicine
DX: G72.3 Periodic paralysis (principal); G92 Toxic encephalopathy; Z87.891 Personal history of nicotine dependence; F31.9 Bipolar disorder, unspecified; K21.9 Gastro-esophageal reflux disease without esophagitis; E03.9 Hypothyroidism, unspecified; Z79.899 Other long term (current) drug therapy
CPT/HCPCS: 36415; 70450; 74177; 80048; 80053; 80164; 81001; 82140; 82947; 83735; 84100; 84439; 84443; 84481; 84484; 85025; 85027; 87086; 93005; 93010; 93306; 96365-59; 96366; 99285-25; A9270; J1200; J1650; J1885; J3480; J7120; Q9967

== ENCOUNTER → 2019-08-14 | Outpatient (CLI) | payer OTHER ==
[~2019-08-14] MED LIST changes: +AMLO5 PO; +MIRALAX17 G1 PO; +PROP60 PO
[2019-08-14 11:28] LABS: Free Thyroxine 0.7 ng/dL (0.70-1.60); Thyroid Stimulating Hormone 6.85 uIU/mL (0.360-4.800); Triiodothyronine, Free 2.02 pg/mL (2.18-3.98)
== END | disposition home or self-care (01) ==
LOC: LAB UVN 08:00 → EDSTATUS 11:45
PROVIDERS: Internal Medicine
DX: E03.9 Hypothyroidism, unspecified (principal)
CPT/HCPCS: 36415; 84439; 84443; 84481

== ENCOUNTER → 2019-10-09 | Outpatient (CLI) | payer OTHER ==
[~2019-10-09] MED LIST changes: +APAP500 MG PO; +EUTHYROX50 MCG PO; +FAMO40 PO; +IBUP400 PO; +LOPE2C PO
== END | disposition home or self-care (01) ==
LOC: LAB UVN 07:40 → EDSTATUS 10:33
DX: E03.9 Hypothyroidism, unspecified (principal)
CPT/HCPCS: 84443

== ENCOUNTER → 2019-10-12 | Outpatient (CLI) | payer OTHER ==
[2019-10-12 05:46] LABS: BASOPHILS ABSOLUTE AUTO 0.06 K/mm3 (0.00-0.23); BASOPHILS PERCENT AUTO 1 % (0-2); EOSINOPHILS PERCENT AUTO 3 % (0-6); Hematocrit 38.7 % (33.0-51.0); Hemoglobin 12.4 g/dL (11.5-16.0); IMMATURE GRAN ABSOLUTE AUTO 0.02 K/mm3 (0.00-0.10); IMMATURE GRAN PERCENT AUTO 0 % (0-1); LYMPHOCYTES ABSOLUTE AUTO 4.56 K/mm3 (0.84-5.20); LYMPHOCYTES PERCENT AUTO 57 % (21-46); MONOCYTES ABSOLUTE AUTO 0.57 K/mm3 (0.16-1.47); MONOCYTES PERCENT AUTO 7 % (4-13); Mean Corpuscular HGB 28.4 pg (26.0-34.0); Mean Corpuscular Volume 89 fL (80-100); Mean Platelet Volume 11.5 fL (9.1-12.4); NEUTROPHILS ABSOLUTE AUTO 2.62 K/mm3 (1.96-9.15); NEUTROPHILS PERCENT AUTO 33 % (41-73); Platelet Count 253 K/mm3 (150-400); RDW Coefficient Variation 13.3 % (11.7-14.2); RDW Standard Deviation 43.5 fL (35.1-46.3); Red Blood Cell Count 4.36 M/mm3 (3.80-5.20); White Blood Cell Count 8.03 K/mm3 (4.00-11.30)
[2019-10-12 05:54] LABS: Anion Gap 10 mmol/L (6-16); Blood Urea Nitrogen 14 mg/dL (8-24); Bun/Creatinine Ratio 22.3 (12.0-20.0); CO2, Blood 24 mmol/L (21-32); Chloride, Blood 105 mmol/L (98-108); Creatinine, Blood 0.63 mg/dL (0.40-1.00); Glomerular Filtration Rate >60 (60-); Glucose, Blood 86 mg/dL (70-99); Sodium, Blood 139 mmol/L (136-145)
== END | disposition home or self-care (01) ==
PROVIDERS: Internal Medicine Gastroenterology
DX: R19.4 Change in bowel habit (principal)

== ENCOUNTER → 2020-07-22 | Outpatient (CLI) | payer OTHER ==
[~2020-07-22] MED LIST changes: +BENZ1 PO; +CETI5; +CIPR500 PO; +COLESTID1 G1 PO; +COMBIVENT RESPIM4 G1; +DULCOLAX400 MG/5 M; +EQUALACTIN; +FLUT.05NI; +GABA100; +MELATONIN5 M1; +METR500 PO; +OMEP20ER; +POLY500 PO; +POLYETHYLENE G500 G1 PO; +PROP60; +Synthroid200 MCG PO; +THERA-D2000 UNIT PO
[2020-07-22 13:40] LABS: Appearance, Urine Clear (Clear); Bilirubin, Urine Neg (Neg); Blood, Urine Neg (Neg); Color, Urine Yellow (P-Yellow); Glucose Qualitative, Urine Neg (Neg); Ketones, Urine Neg (Neg); Leukocyte Esterase, Urine 1+ (Neg); Nitrite, Urine Neg (Neg); Protein, Urine Neg (Neg); Urobilinogen, Urine NORM (Normal); pH, Urine 6.5 (5.0-8.0)
[2020-07-22 14:01] LABS: Bacteria Few /hpf; Red Blood Cells, Urine 0-2 /hpf (0-2); Squamous Epithelial Cells Few /hpf (Few)
== END | disposition home or self-care (01) ==
LOC: PLD 11:09 → LAB SHORT 11:09
PROVIDERS: Internal Medicine
DX: N39.0 Urinary tract infection, site not specified (principal)
CPT/HCPCS: 81001; 87086

== ENCOUNTER 2020-08-09 15:34 | Emergency (ER) | payer OTHER ==
[~2020-08-09] VITALS: Ht 167.6 cm; Wt 77.1 kg
[~2020-08-09 15:34] MED LIST changes: -BENZ1 PO; -CETI5; -CIPR500 PO; -COLESTID1 G1 PO; -COMBIVENT RESPIM4 G1; -DULCOLAX400 MG/5 M; -EQUALACTIN; -FLUT.05NI; -GABA100; -MELATONIN5 M1; -METR500 PO; -OMEP20ER; -POLY500 PO; -POLYETHYLENE G500 G1 PO; -PROP60; -Synthroid200 MCG PO; -THERA-D2000 UNIT PO
[2020-08-09 16:12] LABS: BASOPHILS ABSOLUTE AUTO 0.04 K/mm3 (0.00-0.23); BASOPHILS PERCENT AUTO 1 % (0-2); EOSINOPHILS ABSOLUTE AUTO 0.16 K/mm3 (0.00-0.68); EOSINOPHILS PERCENT AUTO 2 % (0-6); Hematocrit 37.7 % (33.0-51.0); Hemoglobin 11.9 g/dL (11.5-16.0); IMMATURE GRAN ABSOLUTE AUTO 0.02 K/mm3 (0.00-0.10); IMMATURE GRAN PERCENT AUTO 0 % (0-1); LYMPHOCYTES ABSOLUTE AUTO 3.19 K/mm3 (0.84-5.20); LYMPHOCYTES PERCENT AUTO 43 % (21-46); MONOCYTES ABSOLUTE AUTO 0.71 K/mm3 (0.16-1.47); MONOCYTES PERCENT AUTO 10 % (4-13); Mean Corpuscular HGB 28.9 pg (26.0-34.0); Mean Corpuscular HGB Conc 31.6 g/dL (31.5-36.5); Mean Corpuscular Volume 92 fL (80-100); Mean Platelet Volume 10.6 fL (9.1-12.4); NEUTROPHILS ABSOLUTE AUTO 3.39 K/mm3 (1.96-9.15); NEUTROPHILS PERCENT AUTO 45 % (41-73); Platelet Count 252 K/mm3 (150-400); RDW Coefficient Variation 14.4 % (11.7-14.2); RDW Standard Deviation 48.4 fL (35.1-46.3); Red Blood Cell Count 4.12 M/mm3 (3.80-5.20); White Blood Cell Count 7.51 K/mm3 (4.00-11.30)
[2020-08-09] MEDS ORDERED: BENZ1 PO (16:25)
[2020-08-09] MEDS ORDERED: COMBIVENT RESPIM4 G1 (16:26)
[2020-08-09] MEDS ORDERED: CETI5 (16:26)
[2020-08-09] MEDS ORDERED: DULO60 PO (16:26)
[2020-08-09] MEDS ORDERED: FLUT.05NI (16:27)
[2020-08-09] MEDS ORDERED: EQUALACTIN (16:27)
[2020-08-09] MEDS ORDERED: OMEP20ER (16:28)
[2020-08-09] MEDS ORDERED: GABA100 (16:28)
[2020-08-09] MEDS ORDERED: DULCOLAX400 MG/5 M (16:28)
[2020-08-09] MEDS ORDERED: MELATONIN5 M1 (16:28)
[2020-08-09] MEDS ORDERED: PROP60 (16:29)
[2020-08-09 16:33] LABS: Alanine Aminotransfer (ALT/SGP 23 U/L (12-78); Albumin, Blood 2.9 g/dL (3.4-5.0); Albumin/Globulin Ratio 0.7 (0.8-1.8); Alk Phos 66 U/L (50-136); Anion Gap 6 mmol/L (6-16); Aspartate Aminotrans (AST/SGOT 16 U/L (12-37); Bilirubin, Total 0.2 mg/dL (0.1-1.0); Blood Urea Nitrogen 13 mg/dL (8-24); Bun/Creatinine Ratio 18.6 (12.0-20.0); CO2, Blood 27 mmol/L (21-32); Calcium, Blood 8.3 mg/dL (8.5-10.1); Chloride, Blood 112 mmol/L (98-108); Globulin, Blood 3.9 g/dL (2.2-4.0); Glomerular Filtration Rate >60 (60-); Glucose, Blood 97 mg/dL (70-99); Potassium, Blood 4.4 mmol/L (3.5-5.5); Sodium, Blood 145 mmol/L (136-145); Total Protein, Blood 6.8 g/dL (6.4-8.2)
[2020-08-09 18:44] LABS: Source, Urine Clean Catch
[2020-08-09 18:52] LABS: Appearance, Urine Clear (Clear); Bilirubin, Urine Neg (Neg); Blood, Urine Neg (Neg); Color, Urine Yellow (P-Yellow); Glucose Qualitative, Urine Neg (Neg); Ketones, Urine Neg (Neg); Leukocyte Esterase, Urine 1+ (Neg); Nitrite, Urine Neg (Neg); Protein, Urine Neg (Neg); Urobilinogen, Urine NORM (Normal)
[2020-08-09 19:20] LABS: Red Blood Cells, Urine 0-2 /hpf (0-2); Squamous Epithelial Cells Few /hpf (Few)
[2020-08-09 19:21] LABS: Bacteria Few /hpf
== END 2020-08-09 20:30 | disposition home or self-care (01) ==
LOC: ER 15:34
PROVIDERS: Emergency Medicine
DX: R42 Dizziness and giddiness (principal); I10 Essential (primary) hypertension; E03.9 Hypothyroidism, unspecified; K21.9 Gastro-esophageal reflux disease without esophagitis; Z87.891 Personal history of nicotine dependence; Z88.8 Allergy status to other drugs, medicaments and biological substances; Z79.899 Other long term (current) drug therapy
CPT/HCPCS: 36415; 70496; 70498; 80053; 81001; 84484; 85025; 93005; 93010; 99284-25; A9270; J7030; Q9967

== ENCOUNTER 2020-09-07 09:41 | Emergency (ER) | payer OTHER ==
[~2020-09-07] VITALS: Ht 167.6 cm; Wt 81.7 kg
[~2020-09-07 09:41] MED LIST changes: +BENZ1 PO; +CETI5; +COMBIVENT RESPIM4 G1; +DULCOLAX400 MG/5 M; +EQUALACTIN; +FLUT.05NI; +GABA100; +MELATONIN5 M1; +OMEP20ER; +PROP60
[2020-09-07] MEDS ORDERED: THERA-D2000 UNIT PO (10:02)
[2020-09-07] MEDS ORDERED: COLESTID1 G1 PO (10:03)
[2020-09-07] MEDS ORDERED: POLY500 PO (10:06)
[2020-09-07] MEDS ORDERED: POLYETHYLENE G500 G1 PO (10:07)
== END 2020-09-07 11:23 | disposition home or self-care (01) ==
LOC: ER 09:41
DX: F41.9 Anxiety disorder, unspecified (principal); Z87.891 Personal history of nicotine dependence; Z88.8 Allergy status to other drugs, medicaments and biological substances; Z79.899 Other long term (current) drug therapy
CPT/HCPCS: 99283

== ENCOUNTER → 2020-09-11 | Outpatient (CLI) | payer OTHER ==
[~2020-09-11] MED LIST changes: +COLESTID1 G1 PO; +POLY500 PO; +POLYETHYLENE G500 G1 PO; +THERA-D2000 UNIT PO
[2020-09-11 14:29] LABS: BASOPHILS ABSOLUTE AUTO 0.06 K/mm3 (0.00-0.23); BASOPHILS PERCENT AUTO 1 % (0-2); EOSINOPHILS ABSOLUTE AUTO 0.15 K/mm3 (0.00-0.68); EOSINOPHILS PERCENT AUTO 2 % (0-6); Hematocrit 38.1 % (33.0-51.0); Hemoglobin 12.3 g/dL (11.5-16.0); IMMATURE GRAN ABSOLUTE AUTO 0.01 K/mm3 (0.00-0.10); IMMATURE GRAN PERCENT AUTO 0 % (0-1); LYMPHOCYTES ABSOLUTE AUTO 3.29 K/mm3 (0.84-5.20); LYMPHOCYTES PERCENT AUTO 39 % (21-46); MONOCYTES ABSOLUTE AUTO 0.68 K/mm3 (0.16-1.47); MONOCYTES PERCENT AUTO 8 % (4-13); Mean Corpuscular HGB 29.1 pg (26.0-34.0); Mean Corpuscular HGB Conc 32.3 g/dL (31.5-36.5); Mean Corpuscular Volume 90 fL (80-100); Mean Platelet Volume 11.1 fL (9.1-12.4); NEUTROPHILS ABSOLUTE AUTO 4.32 K/mm3 (1.96-9.15); NEUTROPHILS PERCENT AUTO 51 % (41-73); Platelet Count 288 K/mm3 (150-400); RDW Coefficient Variation 14.1 % (11.7-14.2); RDW Standard Deviation 46.5 fL (35.1-46.3); Red Blood Cell Count 4.22 M/mm3 (3.80-5.20); White Blood Cell Count 8.51 K/mm3 (4.00-11.30)
== END | disposition home or self-care (01) ==
LOC: LAB SHORT 13:04
PROVIDERS: Family Medicine
DX: R22.31 Localized swelling, mass and lump, right upper limb (principal)
CPT/HCPCS: 85025

== ENCOUNTER 2020-11-15 10:59 | Emergency (ER) | payer OTHER ==
[~2020-11-15] VITALS: Ht 167.6 cm; Wt 81.7 kg
[2020-11-15] MEDS ORDERED: Synthroid200 MCG PO (11:14)
[2020-11-15 11:25] LABS: BASOPHILS ABSOLUTE AUTO 0.04 K/mm3 (0.00-0.23); BASOPHILS PERCENT AUTO 1 % (0-2); EOSINOPHILS ABSOLUTE AUTO 0.07 K/mm3 (0.00-0.68); EOSINOPHILS PERCENT AUTO 1 % (0-6); Hematocrit 36.3 % (33.0-51.0); IMMATURE GRAN ABSOLUTE AUTO 0.02 K/mm3 (0.00-0.10); IMMATURE GRAN PERCENT AUTO 0 % (0-1); LYMPHOCYTES ABSOLUTE AUTO 2.76 K/mm3 (0.84-5.20); LYMPHOCYTES PERCENT AUTO 40 % (21-46); MONOCYTES ABSOLUTE AUTO 0.57 K/mm3 (0.16-1.47); MONOCYTES PERCENT AUTO 8 % (4-13); Mean Corpuscular HGB 29.9 pg (26.0-34.0); Mean Corpuscular HGB Conc 33.1 g/dL (31.5-36.5); Mean Corpuscular Volume 91 fL (80-100); Mean Platelet Volume 10.6 fL (9.1-12.4); NEUTROPHILS ABSOLUTE AUTO 3.47 K/mm3 (1.96-9.15); NEUTROPHILS PERCENT AUTO 50 % (41-73); Platelet Count 260 K/mm3 (150-400); RDW Coefficient Variation 14.1 % (11.7-14.2); RDW Standard Deviation 47.3 fL (35.1-46.3); Red Blood Cell Count 4.01 M/mm3 (3.80-5.20); White Blood Cell Count 6.93 K/mm3 (4.00-11.30)
[2020-11-15 11:42] LABS: Alanine Aminotransfer (ALT/SGP 13 U/L (12-78); Albumin, Blood 2.9 g/dL (3.4-5.0); Albumin/Globulin Ratio 0.7 (0.8-1.8); Alk Phos 82 U/L (50-136); Anion Gap 4 mmol/L (6-16); Aspartate Aminotrans (AST/SGOT 6 U/L (12-37); Bilirubin, Total 0.2 mg/dL (0.1-1.0); Blood Urea Nitrogen 6 mg/dL (8-24); CO2, Blood 27 mmol/L (21-32); Calcium, Blood 8.5 mg/dL (8.5-10.1); Chloride, Blood 105 mmol/L (98-108); Creatinine, Blood 0.75 mg/dL (0.40-1.00); Globulin, Blood 3.9 g/dL (2.2-4.0); Glomerular Filtration Rate >60 (60-); Glucose, Blood 108 mg/dL (70-99); Potassium, Blood 4.1 mmol/L (3.5-5.5); Sodium, Blood 136 mmol/L (136-145); Total Protein, Blood 6.8 g/dL (6.4-8.2)
[2020-11-15 13:15] LABS: Source, Urine Clean Catch
[2020-11-15 13:19] LABS: Bilirubin, Urine Neg (Neg); Blood, Urine Neg (Neg); Glucose Qualitative, Urine Neg (Neg); Ketones, Urine Neg (Neg); Leukocyte Esterase, Urine Neg (Neg); Nitrite, Urine Neg (Neg); Protein, Urine Neg (Neg); Specific Gravity, Urine 1.005 (1.003-1.022); Urobilinogen, Urine NORM (Normal)
[2020-11-15 13:24] LABS: Appearance, Urine Clear (Clear); Color, Urine Pale Yellow (P-Yellow)
[2020-11-15] MEDS ORDERED: CIPR500 PO (13:58)
[2020-11-15] MEDS ORDERED: METR500 PO (13:58)
== END 2020-11-15 14:05 | disposition home or self-care (01) ==
LOC: ER 10:59
PROVIDERS: Emergency Medicine; Student in an Organized Health Care Education/Training Program
DX: K59.00 Constipation, unspecified (principal); F17.210 Nicotine dependence, cigarettes, uncomplicated; I10 Essential (primary) hypertension
CPT/HCPCS: 36415; 74177; 80053; 81003; 83690; 85025; 96374-59; 96375; 99284-25; A9270; J1885; J2405; J7030; Q9967

== ENCOUNTER → 2021-08-16 | Outpatient (CLI) | payer OTHER ==
[~2021-08-16] MED LIST changes: +CIPR500 PO; +METR500 PO; +Synthroid200 MCG PO
== END ==
LOC: LAB SHORT 17:45
DX: E03.9 Hypothyroidism, unspecified (principal)
CPT/HCPCS: 84443

== ENCOUNTER 2021-10-23 13:22 | Emergency (ER) | payer OTHER ==
[~2021-10-23] VITALS: Ht 167.6 cm; Wt 81.7 kg
== END 2021-10-23 17:40 | disposition home or self-care (01) ==
LOC: ER 13:22
DX: M25.551 Pain in right hip (principal); R51.9 Headache, unspecified; M54.2 Cervicalgia; M79.661 Pain in right lower leg; I10 Essential (primary) hypertension; E03.9 Hypothyroidism, unspecified; K21.9 Gastro-esophageal reflux disease without esophagitis; F17.210 Nicotine dependence, cigarettes, uncomplicated; W05.0XXA Fall from non-moving wheelchair, initial encounter; Y92.89 Other specified places as the place of occurrence of the external cause; Z88.8 Allergy status to other drugs, medicaments and biological substances; Z79.899 Other long term (current) drug therapy
CPT/HCPCS: 70450; 72125; 73502; J2270; J2405

== ENCOUNTER 2021-10-25 11:46 | Emergency (ER) | payer OTHER ==
[~2021-10-25] VITALS: Ht 167.6 cm; Wt 90.7 kg
== END 2021-10-25 14:22 | disposition home or self-care (01) ==
LOC: ER 11:46
DX: M25.551 Pain in right hip (principal); I10 Essential (primary) hypertension; E03.9 Hypothyroidism, unspecified; K21.9 Gastro-esophageal reflux disease without esophagitis; F17.210 Nicotine dependence, cigarettes, uncomplicated; W05.0XXA Fall from non-moving wheelchair, initial encounter; Z88.8 Allergy status to other drugs, medicaments and biological substances; Z79.899 Other long term (current) drug therapy
CPT/HCPCS: 73502; A9270

== ENCOUNTER 2021-11-06 23:15 | Emergency (ER) | payer OTHER ==
[~2021-11-06] VITALS: Ht 170.2 cm; Wt 90.7 kg
== END 2021-11-07 02:14 | disposition home or self-care (01) ==
LOC: ER 23:15
DX: M54.50 Low back pain, unspecified (principal); I10 Essential (primary) hypertension; E03.9 Hypothyroidism, unspecified; K21.9 Gastro-esophageal reflux disease without esophagitis; F17.210 Nicotine dependence, cigarettes, uncomplicated; W19.XXXA Unspecified fall, initial encounter; Z79.899 Other long term (current) drug therapy; Z88.8 Allergy status to other drugs, medicaments and biological substances
CPT/HCPCS: 99283

== ENCOUNTER → 2021-11-09 | Outpatient (CLI) | payer OTHER ==
[2021-11-09 17:10] LABS: Appearance, Urine Clear (Clear); Bilirubin, Urine Neg (Neg); Blood, Urine Neg (Neg); Color, Urine Yellow (P-Yellow); Glucose Qualitative, Urine Neg (Neg); Ketones, Urine Neg (Neg); Leukocyte Esterase, Urine Neg (Neg); Nitrite, Urine Neg (Neg); Protein, Urine Neg (Neg); Urobilinogen, Urine NORM (Normal)
== END | disposition home or self-care (01) ==
LOC: LAB SHORT 13:30 → LAB 13:30
PROVIDERS: Internal Medicine
DX: N39.0 Urinary tract infection, site not specified (principal)
CPT/HCPCS: 81003

== ENCOUNTER 2021-11-26 08:40 | Day surgery (SDC) | payer OTHER ==
[~2021-11-26] VITALS: Ht 167.6 cm; Wt 74.1 kg
--- NOTE | 2021-11-26 09:43 | NUR ---
PT IN TO [facility] BY [facility]TY EARLIER TODAY. History, Chart, Medications and Allergies reviewed before start of procedure.Lungs clear T/O to Auscultation. Patient confirms NPO status and agrees with scheduled surgery. Pre-Op teaching done. Pt verbalizes understanding. Patient States Post-Procedure ride home has been arranged.
[2021-11-26] MEDS ORDERED: ALEN70 PO (09:47)
[2021-11-26] MEDS ORDERED: CETI5 PO (09:49)
[2021-11-26] MEDS ORDERED: Bentyl10 MG PO (09:51)
[2021-11-26] MEDS ORDERED: Flovent Diskus50 MCG INH (09:52)
--- NOTE | 2021-11-26 12:54 | NUR ---
11/26/21 1254 Og Smith 0.5% BUPIVICAINE WITH EPI 1:200,000 TO LEFT HIP AT 1253 BY ND.ALEXEY. 3 PIECES OF METAL REMOVED FROM HIP. SENT TO [facility] FOR CLEANING AND TO BE RETURNED TO PT PER .
--- NOTE | 2021-11-26 18:04 | NUR ---
P CALLS OUT AT TIMES, TELLS ME SHE WANTS TO GO HOME, ORIENTED TO PERSON, PLACE AND THAT SHE HAD HIP SURGERY NO ATTEMPTS TO GET SELF OOB. CALM AND COOPERATIVE. PT STATES LEFT HIP "HURTS JUST A LITTLE BIT" MEDICATED WITH TYLENOL LEFT HIP DRESSING CDI. ATTENDS IN PLACE PT INCONTINENT OF URINE
--- NOTE | 2021-11-27 05:57 | NUR ---
ASSUMED CARE OF PT AT 1900. PT IS ALERT AND ORIENTED, INTERMITTENT CONFUSION, AND INCONTINANT. HAS DRESSING IN PLACE FROM HARDWARE REMOVAL IN L HIP, CSM IS INTACT AND PAIN IS CONTROLLED WITH PRN TYLENOL AND DO 5MG. PT NEED EDUCATION ON THE USAGE OF THE CALL LIGHT, WILL CALL OUT FOR HELP RATHER THAN USE CALL LIGHT. PT WAS ABLE TO AMBULATE TO BSC, TOLERATED WELL WITH NO COMPLAINTS OF PAIN. DRESSING IS CDI. WILL CONTINUE TO MONITOR AND GIVE REPORT TO ONCOMING RN.
--- NOTE | 2021-11-27 07:34 | NUR ---
ASSUMED CARE: PT RESTING QUIETLY AT THIS TIME. NO ACUTE NEEDS OR CONCERNS NOTED
--- NOTE | 2021-11-27 17:37 | NUR ---
SHIFT SUMMARY: PT WORKED WITH PHYSICAL THERAPY AND STOOD WITH THEM. APPEARS THAT PT'S DEBILITY BEGAN WITH INITIAL HIP INJURY. MEDICATED X2 FOR PAIN THIS SHIFT. PT INCONTINENT AT THIS TIME. NO ACUTE NEEDS OR CONCERNS.
--- NOTE | 2021-11-28 04:53 | NUR ---
SHIFT SUMMARY NO ACUTE CHANGES OVERNIGHT. VSS. DENIES CP AND SOB. PT REPORTS PAIN L HIP, MEDICATED WITH ROXICODONE AND TYLENOL. PRESSURE TAPE DRESSING AND GAUZE REMAIN CDI. PT USE BSC WITH 1 SBA, FWW AND GB. VOIDING. IMPULSIVE, BED ALARM ON. BED IN LOW POSITION. CALL LIGHT WITHIN REACH. WILL CONTINUE TO MONITOR AND WILL PROVIDE REPORT TO ONCOMING NURSE.
--- NOTE | 2021-11-28 19:04 | NUR ---
SHIFT SUMMARY PATIENT FORGETFUL AT TIMES, BUT PLEASANT AND COOPERATIVE. IMPULSIVE AND GOT UP ONCE WITHOUT CALLING. CHAIR ALARM IN PLACE AT THIS TIME WITH PATIENT IN WHEELCHAIR. TOLERATING REGULAR DIET AND LIQUIDS. VOIDING WELL. MEDICATED FOR PAIN PER EMAR. COMPRESSION DRESSINGS TO LEFT HIP. PLAN TO DISCHARGE TO SNF OR BACK TO ASSISTED LIVING WHEN AVAILABLE.
--- NOTE | 2021-11-29 04:41 | NUR ---
SHIFT SUMMARY HARWARE REMOVAL WITH LAST 11/26. POD3. L HIP WITH PRESSURE DRESSING REMAINED CDI. NO ACUTE CHANGES OVERNIGHT. PT ON HER WHEECHAIR, WHEELING HERSELF IN THE HALLWAY BEFORE BEDTIME. USE BSC WHEN VOIDING, WITH 1 SBA, FWW AND GB. ATTENDS IN PLACE, INTERMITTENT INCONTINENCE. PT REPORTS MILD PAIN AT REST, MODERATE WITH MOVEMENT. PAIN MANAGED WITH 10MG ROXICODONE. FORGETFUL AT TIMES. TAB ALARM AND BED ALARM ON. BED IN LOW POSITION. TOLERATING PO INTAKE. DENIES N/V. VSS. CALL LIGHT WITHIN REACH. WILL PROVIDE REPORT TO ONCOMING NURSE.
--- NOTE | 2021-11-29 09:30 | NUR ---
PT AWAKENS EASILY EARLIER THIS AM BUT VERY DROWSY AND SLEEPY, FOLLOWS COMMANDS, PERRLA, NEURO CHECKS INTACT, ANSWERS QUESTIONS APPROPRIATELY, REPORTS HAVING SOME L HIP PAIN, THEN FALLS BACK TO SLEEP, VSS, MONITOR.
--- NOTE | 2021-11-29 17:37 | NUR ---
SUMMARY PT WAS VERY DROWSY AND SLEEPY THIS AM BUT IMPROVED T/O THE DAY, WORKED WITH PHYS. TX THIS AM AND OT, UP TO CHAIR THIS AFTERNOON AND AMBULATING TO THE BATHROOM WITH 1 PERSON ASSIST AND VERBAL CUES, PT NOW AWAKE A&OX3, BUT FORGETFUL, DOESN'T USE CALL LIGHT BUT YELLS OUT FOR HELP SITTING ON CHAIR, EATING DINNER, C/O PAIN ON L HIP AREA, TYLENOL GIVEN, OFFERED ICE PACK BUT PT REFUSED, L HIP DSG C/D/I, WAITING FOR PLACEMENT, NO OTHER CHANGES THIS SHIFT.
--- NOTE | 2021-11-30 05:09 | NUR ---
SHIFT SUMMARY NO ACUTE CHANGES OVERNIGHT. AOX3, FORGETFUL AT TIMES. PT DOES NOT APPEAR DROWSY T/O SHIFT. SHE WAS ALERT AND ABLE TO CARRY CONVERSATION AT THE BEGINNING OF SHIFT. SHE SLEPT GOOD OVERNIGHT. AWAKEN THIS MORNING, WET HER BED, CHANGED GARCIA. GOT UP AT THE BS WITH 1 SBA. VOIDING WITHOUT ISSUE. TAKEN MORNING MEDS WHOLE. VSS. DOES NOT USE CALL LIGHT TO MAKE NEEDS KNOWN, INSTEAD SHE WOULD YELL. L HIP WITH PRESSURE DRESSING REMAIN CDI. NO DRAINAGE NOTED. PT DENIES N/T AND DIZZINESS. CALL LIGHT WITHIN REACH. WILL PROVIDE REPORT TO ONCOMING NURSE.
--- NOTE | 2021-11-30 08:42 | NUR ---
AWAKE, A&OX2, OOB TO CHAIR, AMBULATED TO THE BATHROOM W/ 1 PERSON ASSIST, TOLERATED FAIRLY WELL W/ VERBAL CUES, EATING BREAKFAST, L HIP DSG C/D/I, RE-ORIENTS WELL AND FOLLOWS DIRECTIONS, PLEASAND AND COOPERATIVE WITH CARE.
--- NOTE | 2021-11-30 15:07 | NUR ---
WAS CALLED TO THE ROOM BY JUN LANDRY EARLIER THIS AFTERNOON PT WAS NOTED SITTING ON THE FLOOR, STATES PT WAS AMBULATING FROM THE BATHROOM AND WAS TRYING TO PIVOT TO SIT BACK ON THE CHAIR WHEN SHE LOST HER BALANCE AND "FELL ON HER BOTTOM" PT IS AWAKE AND ALERT UPON ASSESSMENT, C/O LOW BACK PAIN, DENIES ANY OTHER PAIN, NO OBVIOUS INJURIES NOTED, PT ASSISTED BACK TO CHAIR, DR. BILL NOTIFIED BY SALINA GOYAL, SPINE AND LUMBAR XR ORDERED.
--- NOTE | 2021-11-30 18:16 | NUR ---
PT MORE AWAKE TODAY, AMBULATED TO THE BATHROOM OR TO USE BSC FAIRLY WELL TODAY, PT HAD A FALL INCIDENT THIS AFTERNOON WHILE TRYING TO PIVOT TO SIT BACK DOWN ON HER CHAIR, TOLERATING TRANSFERS TO BSC OR CHAIR WELL POST FALL WITH ASSIST, TYLENOL FOR PAIN, L HIP DRESSING CHANGED, MEDIPORE DRESSING APPLIED, NO REDNESS NOTED ON INCISION, ALVIN INTACT, INCISION APPEARED CLEAN AND DRY, PT HAS BEEN USING THE CALL LIGHT SOME OF THE TIME BED ALARM OR TAB ALARM IN PLACE, NO ACUTE CHANGES THIS SHIFT.
--- NOTE | 2021-12-01 04:33 | NUR ---
FINANCIAL SALES ASSOCIATE SUMMARY NO ACUTE CHANGES THIS SHIFT. PT AAOX4 AND COOPERATIVE WITH CARE. L HIP DRESSING C/D/I. PT IS A STRONG 1 ASSIST TO THE BSC. BED ALARM ON FOR SAFETY. VSS, WILL CONTINUE TO MONITOR.
--- NOTE | 2021-12-01 07:22 | NUR ---
ASSUMED CARE: PT RESTING QUIETLY AT THIS TIME. NO ACUTE NEEDS OR CONCERNS
--- NOTE | 2021-12-01 10:29 | NUR ---
STAFF MEMBER FROM [facility] CAME TO SEE PT AND ASKED FOR UPDATE. STAFF MEMBER STATED THAT PT LIVES IN APARTMENT ALONE AND THAT THEY WOULD LIKE HER TO GO TO SNF PRIOR TO RETURNING SO THAT SHE COULD GET THERAPY IN ORDER TO BE MORE FUNCTIONAL. THEY SAID CURRENTLY SHE LAYS IN BED ALL DAY. STAFF MEMBER STATES THAT SON CASILLAS WANTS TO TAKE HER BACK BUT FEELS REHAB WOULD BE MOST BENEFICIAL FOR PT BEFORE RETURNING. REPAIRER AND QUALITY ASSURANCE AWARE
--- NOTE | 2021-12-01 18:49 | NUR ---
SHIFT SUMMARY: MACHINE OPERATOR HOP PICKER STATES PT TO RETURN TO [facility] [facility] TOMORROW. MEDICATED FOR PAIN X1. PT INCONTINENT AND DOES NOT AMBULATE FOR STAFF OFTEN. DRESSING CHANGED X1 THIS SHIFT. NO FURTHER NEEDS OR CONCERNS AT THIS TIME.
--- NOTE | 2021-12-02 04:40 | NUR ---
MANAGER CORPORATE MARKETING SUMMARY NO ACUTE CHANGES THIS SHIFT. PT UP TO THE BSC WITH 1 ASSIST, PT HAS AN UNSTEADY GAIT WHEN OUT OF BED. PT ALSO INCONTINENT AT TIMES, REQUIRING FULL BED CHANGE. L HIP DRESSING C/D/I WITH NO DRAINAGE NOTED. BED ALARM ON FOR SAFETY. VSS, WILL CONTINUE TO MONITOR.
--- NOTE | 2021-12-02 17:31 | NUR ---
SHIFT SUMMARY PT IS A/O TODAY, USING CALL LIGHT APPROPRIATELY, C/O FEELING LIKE SHE HAS TO HAVE A BM BUT HAS NOT BEEN ABLE TO, PRN BOWEL CARE MEDS PROVIDED IN ADDITION TO SCHEDULD MEDS. PT DOES WELL WITH TRANSFERRING FROM BED TO BSC AND WAS ABLE TO DO SO WITH MINIMAL ASSISTANCE TODAY. NO ACUTE EVENTS, WILL CTM AND REPORT TO ONCOMING NOC RN.
--- NOTE | 2021-12-03 04:37 | NUR ---
GAME MANAGER SUMMARY NO ACUTE CHANGES THIS SHIFT. PT HAS SLEPT FOR MOST OF THE NIGHT. INCONTINENT, REQUIRING ASSISTANCE WITH ATTENDS CHANGES. PT POSSIBLY DISCHARGING BACK TO [facility] LATER TODAY. VSS, WILL CONTINUE TO MONITOR.
--- NOTE | 2021-12-03 10:40 | NUR ---
DISCHARGE SUMMARY POD7 L HIP HARDWARE REMOVAL, A/O BUT FORGETFUL AT TIMES, PAIN WELL MANAGED, TOLERATING PO, AMBULATES AND TRANSFERS WITH ASSISTANCE, VOIDING WELL, MULTIPLE BM YESTERDAY. PT PICKED UP BY [facility] VIA WC TO BE TAKEN TO [facility] AT [facility] WITHOUT INCIDENT[facility]
== END 2021-12-03 10:12 | disposition home health service (06) ==
LOC: ORSCMMR 08:40 → SURS 08:40 → ORSCMMR 08:41 → ORD 10:30 → ORSCMMR 10:30 → SURS 14:40 → ORSCMMR 12-03 10:12
PROC: 0YPB0YZ Removal of Other Device from Left Lower Extremity, Open Approach (ICD-10-PCS; principal; 2021-12-03)
DX: T84.9XXA Unspecified complication of internal orthopedic prosthetic device, implant and graft, initial encounter (principal); I10 Essential (primary) hypertension; J44.9 Chronic obstructive pulmonary disease, unspecified; F41.9 Anxiety disorder, unspecified; F31.9 Bipolar disorder, unspecified; F17.210 Nicotine dependence, cigarettes, uncomplicated; Z79.899 Other long term (current) drug therapy
CPT/HCPCS: 72100; 94640; 94664; 94760; 97110; 97116; 97161; 97165; 97530; 97535; A9270; C1769; J0171; J0690; J1100; J1885; J2250; J2405; J2704; J3010; J7120

== ENCOUNTER 2022-03-01 11:22 | Emergency (ER) | payer OTHER ==
[~2022-03-01] VITALS: Ht 170.2 cm; Wt 76.2 kg
[~2022-03-01 11:22] MED LIST changes: +ALEN70 PO; +Bentyl10 MG PO; +Flovent Diskus50 MCG INH
[2022-03-01 13:00] LABS: BASOPHILS ABSOLUTE AUTO 0.02 K/mm3 (0.00-0.23); BASOPHILS PERCENT AUTO 0 % (0-2); EOSINOPHILS PERCENT AUTO 1 % (0-6); Hematocrit 37.1 % (33.0-51.0); Hemoglobin 12.8 g/dL (11.5-16.0); IMMATURE GRAN ABSOLUTE AUTO 0.04 K/mm3 (0.00-0.10); IMMATURE GRAN PERCENT AUTO 1 % (0-1); LYMPHOCYTES ABSOLUTE AUTO 2.08 K/mm3 (0.84-5.20); LYMPHOCYTES PERCENT AUTO 26 % (21-46); MONOCYTES ABSOLUTE AUTO 0.74 K/mm3 (0.16-1.47); MONOCYTES PERCENT AUTO 9 % (4-13); Mean Corpuscular HGB 29.4 pg (26.0-34.0); Mean Corpuscular HGB Conc 34.5 g/dL (31.5-36.5); Mean Corpuscular Volume 85 fL (80-100); Mean Platelet Volume 9.7 fL (9.1-12.4); NEUTROPHILS ABSOLUTE AUTO 5.19 K/mm3 (1.96-9.15); NEUTROPHILS PERCENT AUTO 64 % (41-73); Platelet Count 286 K/mm3 (150-400); RDW Coefficient Variation 14.7 % (11.7-14.2); RDW Standard Deviation 46.2 fL (35.1-46.3); Red Blood Cell Count 4.35 M/mm3 (3.80-5.20); White Blood Cell Count 8.17 K/mm3 (4.00-11.30)
[2022-03-01 13:04] LABS: Albumin, Blood 3.2 g/dL (3.4-5.0); Albumin/Globulin Ratio 0.8 (0.8-1.8); Bilirubin, Total 0.2 mg/dL (0.1-1.0); Calcium, Blood 8.8 mg/dL (8.5-10.1); Creatinine, Blood 0.67 mg/dL (0.40-1.00); Globulin, Blood 4.2 g/dL (2.2-4.0); Magnesium, Blood 1.9 mg/dL (1.6-2.4); Potassium, Blood 4.2 mmol/L (3.5-5.5); Total Protein, Blood 7.4 g/dL (6.4-8.2)
[2022-03-01] MEDS ORDERED: ONDA4ODT MM (15:17)
== END 2022-03-01 15:21 | disposition home or self-care (01) ==
LOC: ER 11:22
PROVIDERS: Emergency Medicine
DX: K52.9 Noninfective gastroenteritis and colitis, unspecified (principal); I10 Essential (primary) hypertension; E03.9 Hypothyroidism, unspecified; K21.9 Gastro-esophageal reflux disease without esophagitis; F17.210 Nicotine dependence, cigarettes, uncomplicated; Z88.5 Allergy status to narcotic agent; Z79.899 Other long term (current) drug therapy; Z79.890 Hormone replacement therapy
CPT/HCPCS: 36415; 80053; 83735; 85025; 96374; 99285-25; J2405; J7120

== ENCOUNTER → 2022-06-02 | Outpatient (CLI) | payer OTHER ==
[~2022-06-02] MED LIST changes: +ONDA4ODT MM
[2022-06-02 18:01] LABS: Bun/Creatinine Ratio 24.1 (12.0-20.0); Calcium, Blood 9.4 mg/dL (8.5-10.1); Creatinine, Blood 0.66 mg/dL (0.40-1.00); Potassium, Blood 4.4 mmol/L (3.5-5.5); Thyroid Stimulating Hormone 5.12 uIU/mL (0.360-4.800)
== END | disposition home or self-care (01) ==
LOC: LAB SHORT 13:00
PROVIDERS: Nurse Practitioner Family
DX: E03.9 Hypothyroidism, unspecified (principal); I10 Essential (primary) hypertension
CPT/HCPCS: 80048; 84443

== ENCOUNTER → 2022-07-13 | Outpatient (CLI) | payer OTHER ==
[2022-07-13 18:52] LABS: Appearance, Urine Clear (Clear); Bilirubin, Urine Neg (Neg); Blood, Urine Neg (Neg); Color, Urine Yellow (P-Yellow); Glucose Qualitative, Urine Neg (Neg); Ketones, Urine 1+ (Neg); Leukocyte Esterase, Urine 2+ (Neg); Nitrite, Urine Neg (Neg); Protein, Urine Neg (Neg); Urobilinogen, Urine NORM (Normal)
[2022-07-13 19:17] LABS: Amorphous Light (0-Heavy); Bacteria Many /hpf; Mucus Light (0-Heavy); Red Blood Cells, Urine 0-2 /hpf (0-2); Squamous Epithelial Cells Few /hpf (Few)
== END | disposition home or self-care (01) ==
LOC: LAB SHORT 16:15
PROVIDERS: Internal Medicine
DX: N39.0 Urinary tract infection, site not specified (principal)
CPT/HCPCS: 81001; 87086

== ENCOUNTER → 2022-09-22 | Outpatient (CLI) | payer OTHER ==
[~2022-09-22] MED LIST changes: +AMOCLA875 PO
== END | disposition home or self-care (01) ==
LOC: LAB 09:01 → LAB SHORT 09:01
DX: E03.9 Hypothyroidism, unspecified (principal)
CPT/HCPCS: 84443

== ENCOUNTER → 2022-12-06 | Outpatient (CLI) | payer OTHER | END | disposition home or self-care (01) | LOC: LAB 13:40 → LAB SHORT 13:40 | DX: R41.82 Altered mental status, unspecified (principal) | CPT/HCPCS: 87086 ==

== ENCOUNTER → 2022-12-23 | Outpatient (CLI) | payer OTHER ==
[2022-12-23 15:46] LABS: BASOPHILS ABSOLUTE AUTO 0.05 K/mm3 (0.00-0.23); BASOPHILS PERCENT AUTO 1 % (0-2); EOSINOPHILS ABSOLUTE AUTO 0.13 K/mm3 (0.00-0.68); EOSINOPHILS PERCENT AUTO 2 % (0-6); Hematocrit 38.1 % (33.0-51.0); Hemoglobin 12.5 g/dL (11.5-16.0); IMMATURE GRAN ABSOLUTE AUTO 0.02 K/mm3 (0.00-0.10); IMMATURE GRAN PERCENT AUTO 0 % (0-1); LYMPHOCYTES ABSOLUTE AUTO 1.85 K/mm3 (0.84-5.20); LYMPHOCYTES PERCENT AUTO 23 % (21-46); MONOCYTES ABSOLUTE AUTO 0.66 K/mm3 (0.16-1.47); MONOCYTES PERCENT AUTO 8 % (4-13); Mean Corpuscular HGB 28.7 pg (26.0-34.0); Mean Corpuscular HGB Conc 32.8 g/dL (31.5-36.5); Mean Corpuscular Volume 87 fL (80-100); NEUTROPHILS ABSOLUTE AUTO 5.22 K/mm3 (1.96-9.15); NEUTROPHILS PERCENT AUTO 66 % (41-73); Platelet Count 290 K/mm3 (150-400); RDW Coefficient Variation 15.6 % (11.7-14.2); RDW Standard Deviation 50.1 fL (35.1-46.3); Red Blood Cell Count 4.36 M/mm3 (3.80-5.20); White Blood Cell Count 7.93 K/mm3 (4.00-11.30)
[2022-12-23 17:14] LABS: Alanine Aminotransfer (ALT/SGP 23 U/L (12-78); Albumin, Blood 3.4 g/dL (3.4-5.0); Albumin/Globulin Ratio 0.8 (0.8-1.8); Alk Phos 63 U/L (50-136); Anion Gap 11 mmol/L (6-16); Aspartate Aminotrans (AST/SGOT 19 U/L (12-37); Bilirubin, Total 0.3 mg/dL (0.1-1.0); Blood Urea Nitrogen 7 mg/dL (8-24); Bun/Creatinine Ratio 10.9 (12.0-20.0); CHOL/HDL RATIO 3.3; CO2, Blood 24 mmol/L (21-32); Chloride, Blood 103 mmol/L (98-108); Cholesterol 160 mg/dL (50-200); Creatinine, Blood 0.64 mg/dL (0.40-1.00); Globulin, Blood 4.2 g/dL (2.2-4.0); Glomerular Filtration Rate 98 (60-); Glucose, Blood 127 mg/dL (70-99); HDL Cholesterol 48 mg/dL (>39); LDL/HDL RATIO 1.3; Low Density Lipoprotein Chol 62 mg/dL (0-110); Potassium, Blood 4.1 mmol/L (3.5-5.5); Sodium, Blood 138 mmol/L (136-145); Thyroid Stimulating Hormone 0.039 uIU/mL (0.360-4.800); Total Protein, Blood 7.6 g/dL (6.4-8.2); Triglycerides 250 mg/dL (30-160); Very Low Density Lipoprot Chol 50 mg/dL (6-32)
== END | disposition home or self-care (01) ==
LOC: LAB SHORT 12:35 → LAB 12:35
PROVIDERS: Physician Assistant
DX: Z11.59 Encounter for screening for other viral diseases (principal); E00.0 Congenital iodine-deficiency syndrome, neurological type; E78.2 Mixed hyperlipidemia
CPT/HCPCS: 80053; 80061; 84443; 85025; 86803